=== PATIENT | male | born 1975 | race Caucasian/White ===

== ENCOUNTER 2019-11-21 09:54 | Inpatient (IN) | payer OTHER, SELFPAY ==
[2019-11-21] VITALS (23 sets, daily range): BP systolic 114–157; BP diastolic 71–91; PULSE 69–104; RESP 12–22; TEMP 36.6–38.7; O2SAT 91–99; BMI 22.6
--- NOTE | 2019-11-21 | PATH_ITS ---
[facility] Accession Number: [id number] . 01 Material submitted: . PART A: sigmoid colon - SIGMOID COLON PART B: rectum - RECTAL DONUTS . 01 Clinical history: . MULTIPLE PERFORATIONS IN COLON . 02 Diagnosis: A. Sigmoid Colon, Resection: Ruptured diverticulitis with pericolonic abscess and serositis. Negative for features of chronic or microscopic colitis. Negative for dysplasia and malignancy. . B. Rectum, Donuts: Portions of colon wall with focally denuded epithelium and serositis. Negative for features of chronic or microscopic colitis. Negative for dysplasia and malignancy. [facility] 11/23/2019 1328 Local . 02 Electronically signed: . Federica Worley MD, Pathologist NPI- [id number] . 01 Gross description: . (A) Received in formalin, labeled sigmoid colon, is an unoriented piece of colon (length-13.5 cm, opened resection margin diameter-2.7 cm, stapled resection margin diameter-2.8 cm) with attached adipose tissue (up to 3.8 cm in depth). The serosa is miller-pink, smooth and shiny. The adipose tissue partially covered in shipley-green, flaky, friable exudate. The mucosa is miller with normal folds. An apparent rupture site is identified 6.8 cm from the opened resection margin and 6.6 cm from the stapled resection margin. No nodules, masses or lesions are identified. The resection margins are inked blue. Section code: (A1) opened resection margin, agricultural sales representative longitudinal sections; (A2) stapled resection margin, agricultural sales representative longitudinal sections; (A3-A9) agricultural sales representative serial sections submitted from the opened resection margin to the stapled resection margin. (B) Received in formalin, labeled rectal donuts, are two unoriented segments of colon (segment 1: length-1.1 cm, diameter-1.6 cm; segment 2: length-0.7 cm, diameter-1.9 cm). The mucosa is miller, smooth and shiny. No nodules, masses or lesions are identified. The resection margins are inked blue. Each are bisected and entirely submitted in cassettes B1-B2 and B3-B4, respectively. ([id number]) /MRV 11/22/2019 1024 Local . 02 Pathologist provided ICD-10: K57.20 . 02 CPT . 849493, [id number] Performed at: 01 [facility] [address] [place] [address], [place], [place] [id number] MD Toni Johnson MD Phone: [phone] Performed at: 02 [facility] [address] [place], [place] [id number] MD Federica Worley MD Phone: [phone]
--- NOTE | 2019-11-21 10:18 | ED.GENADULT ---
HPI - General Adult General Chief complaint: Abdominal Pain Stated complaint: Multiple perforations in colon Time Seen by Provider: 11/21/19 10:00 Source: patient Mode of arrival: Ambulatory Limitations: no limitations History of Present Illness HPI narrative: 44-year-old male here to this emergency department after leaving against medical advice from another facility this morning. Patient states that on Wednesday he developed generalized abdominal pain. Went to the emergency department at this outside facility where he had a CT scan performed. He states that he was diagnosed with a perforated diverticulitis. He did report that there were no signs of abscesses. Was admitted to the hospital. Started on antibiotics. He also stated that his potassium was low so he was receiving potassium supplementation. Was in the hospital there until this morning. He states that yesterday his abdominal pain worsen. He stated that he had another CT scan performed when he was told that he now had ?multiple ?perforations in his colon. He is unsure whether not there were any associated abscesses however he does not remember them saying anything about this. The reason that he left against medical advice this morning was because he felt like he was ?not getting answers ?from the physician's at the other facility. He stated that he had to ask about his CT resolved. He stated that he had at ask for pain medication. He states that currently he is having generalized abdominal pain. He is having loose stools. No blood in the stools. A very small amount of nausea but no vomiting. He is also now having burning when he urinates. He states that since he was admitted to the hospital he has found out that he has a ?allergy? to opioid medications. He states that his reaction is itching. He states that he has been receiving Benadryl which improves the it but does not take it completely away. Related Data Home Medications Medication Instructions Recorded Confirmed IBUPROFEN (Motrin / Advil) 600 mg PO BID #0 05/01/06 Allergies Allergy/AdvReac Type Severity Reaction Status Date / Time hydromorphone [From Dilaudid] AdvReac Unknown ITCHING Verified 11/21/19 10:43 Review of Systems Constitutional Constitutional: Denies fever(s) and Denies headache(s) ENT Ears, Nose, Mouth, and Throat: Denies headache(s) Cardiovascular Cardiovascular: Denies chest pain and Denies dyspnea Respiratory Respiratory: Denies dyspnea Gastrointestinal Gastrointestinal: Reports abdominal pain, Reports change in stool character, Reports nausea and Denies vomiting Genitourinary Genitourinary: Reports dysuria Musculoskeletal Musculoskeletal: Denies myalgias and Denies arthralgias Integumentary/Breasts Skin/Breast: Denies lesions and Denies rash Neurologic Neurologic: Denies behavioral changes and Denies headache(s) Psychiatric Psychiatric: Denies behavioral changes Hematologic/Lymphatic Hematologic/Lymphatic: Denies easy bleeding and Denies easy bruising Allergic/Immunologic Allergic/Immunologic: Denies urticaria Patient History Medical History (Updated 11/21/19 @ 10:53 by Yasir Yang DO) Diverticulitis (Acute) Surgical History History of splenectomy (Acute) Social History Smoking Status: Current every day smoker Exam Initial Vital Signs Initial Vital Signs: Vital Signs Temperature 97.8 F 11/21/19 10:20 Pulse Rate 87 11/21/19 10:20 Respiratory Rate 13 11/21/19 10:20 Blood Pressure 131/78 11/21/19 10:20 Pulse Oximetry 98 11/21/19 10:20 Const General: cooperative and comfortable Limitations: mental status not altered HENMT Head: normal to inspection and normocephalic Resp Effort & Inspection: normal respiratory effort Auscultation: clear to auscultation bilaterally Cardio Rate: regular rate Rhythm: regular rhythm GI Inspection: non-distended Palpation: soft and tender (Diffuse tenderness) Skin Lesions: no lesions Rashes: no rashes Neuro General: alert and awake Cognition: normal cognition Speech: speech normal Extrem General: normal to inspection and capillary refill normal Psych Appearance: grossly normal and well kempt Scores GCS [place] coma scale eye opening: Spontaneous [place] coma scale verbal response: Orientated [place] coma scale motor response: Obey commands [place] coma scale total score: 15 Course Orders Ordered: ED Orders 11/21/19 10:25 Complete Blood Count AUTO DIFF Stat Comprehensive Metabolic Panel Stat Lactate (Lactic Acid) Stat Lipase Stat Procalcitonin Stat 11/21/19 10:52 Consult to General Surgery Stat Hydromorphone HCl (Dilaudid) 1 mg IV Q4HR PRN PRN Reason: Pain, Mild (1-3) Sodium Chloride (Normal Saline 0.9%) 1,000 mls @ 125 mls/hr IV CONT CALEB Last Admin: 11/21/19 10:48 Dose: 125 mls/hr Documented by: ABEL Piperacillin/Tazobactam/Dextrose (Zosyn) 3.375 gm in 50 mls @ 100 mls/hr IV NOW ONE Stop: 11/21/19 11:22 Metronidazole (Flagyl) 500 mg in 100 mls @ 100 mls/hr IV NOW ONE Stop: 11/21/19 11:51 Ondansetron HCl (Zofran) 4 mg IV Q4HR PRN PRN Reason: Nausea And Vomiting Discontinued Medications Diphenhydramine HCl (Benadryl) 25 mg IV NOW ONE Stop: 11/21/19 11:00 Hydromorphone HCl (Dilaudid) 1 mg IV NOW ONE Stop: 11/21/19 11:00 Vital Signs Vital signs: Vital Signs - 8 hr 11/21/19 10:20 Temperature 97.8 F Pulse Rate 87 Respiratory Rate 13 Blood Pressure 131/78 Pulse Oximetry 98 Medical Decision Making Medical Records Medical records reviewed: Yes I reviewed the patient's medical records. Lab Data Lab results reviewed: Yes I reviewed the patient's lab results. Result diagrams: 11/21/19 10:25 11/21/19 10:25 Labs: Lab Results 11/21/19 11/21/19 11/21/19 Range/Units 10:25 10:25 10:25 WBC 17.8 H (4.5-11.0) X10^3/uL RBC 4.51 (4.5-5.9) X10^6/uL Hgb 15.5 (13.5-17.5) g/dL Hct 44.5 (41-53) % MCV 98.6 (80-100) fL MCH 34.2 H (26-34) PG MCHC 34.7 (30-36) % RDW 12.9 (11.6-14.8) % Plt Count 244 (150-400) X10^3/uL Neut % (Auto) 90.8 H (50-75) % Lymph % (Auto) 2.1 L (25-40) % [place] % (Auto) 6.8 (3-14) % Eos % (Auto) 0.2 L (2-4) % Baso % (Auto) 0.1 (0-2) % Neut # (Auto) 79189 H (4169-2551) /uL Lymph # (Auto) 400 L (0043-9251) /uL [place] # (Auto) 1200 H (0-900) /uL Eos # (Auto) 0 (0-450) /uL Baso # (Auto) 0 (0-100) /uL Sodium 138 (137-145) mmol/L Potassium 3.7 (3.4-5.1) mmol/L Chloride 102 (98-107) mmol/L Carbon Dioxide 23 (22-32) mmol/L BUN 6 L (9-20) mg/dL Creatinine 0.70 (0.66-1.25) mg/dL Estimated GFR > 60.0 (>60) mL/min BUN/Creatinine Ratio 8.6 (6-22) Glucose 78 (70-100) mg/dL Lactate (0.7-2.1) mmol/L Calcium 9.2 (8.4-10.2) mg/dL Total Bilirubin 1.2 (0.2-1.3) mg/dL AST 32 (17-59) IU/L ALT 22 (<50) IU/L Alkaline Phosphatase 67 (38-126) U/L Total Protein 7.6 (6.3-8.2) g/dL Albumin 4.0 (3.5-5.0) g/dL Globulin 3.6 (1.7-4.1) g/dL Albumin/Globulin Ratio 1.1 (1.0-2.8) Lipase < 10 L (23-300) U/L Procalcitonin 0.26 (<0.5) ng/mL 11/21/19 Range/Units 10:25 WBC (4.5-11.0) X10^3/uL RBC (4.5-5.9) X10^6/uL Hgb (13.5-17.5) g/dL Hct (41-53) % MCV (80-100) fL MCH (26-34) PG MCHC (30-36) % RDW (11.6-14.8) % Plt Count (150-400) X10^3/uL Neut % (Auto) (50-75) % Lymph % (Auto) (25-40) % [place] % (Auto) (3-14) % Eos % (Auto) (2-4) % Baso % (Auto) (0-2) % Neut # (Auto) (6446-4674) /uL Lymph # (Auto) (3098-7684) /uL [place] # (Auto) (0-900) /uL Eos # (Auto) (0-450) /uL Baso # (Auto) (0-100) /uL Sodium (137-145) mmol/L Potassium (3.4-5.1) mmol/L Chloride (98-107) mmol/L Carbon Dioxide (22-32) mmol/L BUN (9-20) mg/dL Creatinine (0.66-1.25) mg/dL Estimated GFR (>60) mL/min BUN/Creatinine Ratio (6-22) Glucose (70-100) mg/dL Lactate 0.9 (0.7-2.1) mmol/L Calcium (8.4-10.2) mg/dL Total Bilirubin (0.2-1.3) mg/dL AST (17-59) IU/L ALT (<50) IU/L Alkaline Phosphatase (38-126) U/L Total Protein (6.3-8.2) g/dL Albumin (3.5-5.0) g/dL Globulin (1.7-4.1) g/dL Albumin/Globulin Ratio (1.0-2.8) Lipase (23-300) U/L Procalcitonin (<0.5) ng/mL MDM Narrative Medical decision making narrative: I was able to review patient's medical record from the outside facility. Initial CT scan done on 11/18/19 showed diverticulitis without signs of perforation. This was found on a report. The images were not available. Patient had a leukocytosis. Was admitted given Flagyl and Zosyn. Apparently symptoms worsened yesterday. Repeat CT scan yesterday now showed multiple perforated diverticuli with free air. Today patient has diffuse abdominal tenderness. He states he can take opioid medications with Benadryl. Has a leukocytosis. Is afebrile. We are attempting to obtain the CT images from the outside facility. I did discuss the case with Dr. Diego with General surgery who recommended starting the patient back on Zosyn and Flagyl. He did not think that we needed to repeat any imaging today. We will admit him for further evaluation and treatment. Discussed this with the patient. He expressed understanding and agreement. Discharge Plan Departure Patient Disposition: Admitted As Inpatient Clinical Impression: Diverticulitis of colon with perforation Qualifiers: Diverticulitis bleeding: unspecified bleeding status Qualified Code(s): K57.20 - Diverticulitis of large intestine with perforation and abscess without bleeding Admit Date/Time: 11/21/19 11:13
[2019-11-21 10:40] LABS: Add Manual Diff / Slide Review NO; Basophils Absolute Auto 0 /uL (0-100); Basophils Percent Auto 0.1 % (0-2); Eosinophils Absolute Auto 0 /uL (0-450); Eosinophils Percent Auto 0.2 % (2-4); Hematocrit 44.5 % (41-53); Hemoglobin 15.5 g/dL (13.5-17.5); Lymphocytes Absolute Auto 400 /uL (1100-4500); Lymphocytes Percent Auto 2.1 % (25-40); Mean Corpuscular HGB Conc 34.7 % (30-36); Mean Corpuscular Hemoglobin 34.2 PG (26-34); Mean Corpuscular Volume 98.6 fL (80-100); Monocytes Absolute Auto 1200 /uL (0-900); Monocytes Percent Auto 6.8 % (3-14); Neutrophils Absolute Auto 16200 /uL (1500-7000); Neutrophils Percent Auto 90.8 % (50-75); Platelet Count 244 X10^3/uL (150-400); Red Blood Cell Count 4.51 X10^6/uL (4.5-5.9); Red Cell Distribution Width 12.9 % (11.6-14.8); White Blood Cell Count 17.8 X10^3/uL (4.5-11.0)
[2019-11-21] MEDS: SODIUM CHLORIDE 0.9% 1,000 ML 125 ML IV (10:48)
[2019-11-21 10:54] LABS: Alanine Aminotransferase 22 IU/L (<50); Albumin Globulin Ratio 1.1 (1.0-2.8); Alkaline Phosphatase 67 U/L (38-126); Aspartate Aminotransferase 32 IU/L (17-59); BUN Creatinine Ratio 8.6 (6-22); Bilirubin Total 1.2 mg/dL (0.2-1.3); Blood Urea Nitrogen 6 mg/dL (9-20); Calcium 9.2 mg/dL (8.4-10.2); Carbon Dioxide 23 mmol/L (22-32); Chloride 102 mmol/L (98-107); Estimated Glomerular Filt Rate > 60.0 mL/min (>60); Globulin 3.6 g/dL (1.7-4.1); Glucose 78 mg/dL (70-100); HEMOLYSIS 31 (0-50); Potassium 3.7 mmol/L (3.4-5.1); Sodium 138 mmol/L (137-145); Total Protein 7.6 g/dL (6.3-8.2)
[2019-11-21 10:55] LABS: Lactate (Lactic Acid) 0.9 mmol/L (0.7-2.1)
[2019-11-21 10:57] LABS: Lipase < 10 U/L (23-300)
[2019-11-21 11:09] LABS: Procalcitonin 0.26 ng/mL (<0.5)
[2019-11-21] MEDS: ONDANSETRON 4 MG/2 ML INJ IV ×2 (11:14→19:07)
[2019-11-21] MEDS: HYDROMORPHONE 2 MG INJ 1 MG IV ×2 (11:14→23:55)
[2019-11-21] MEDS: diphenhydrAMINE 50 MG/ML VIAL 25 MG IV (11:40)
[2019-11-21] MEDS: PIPERACILLIN-TAZO 3.375 GM/50 ML FROZ.PIGGY IV (11:41)
[2019-11-21] MEDS: metroNIDAZOLE 500 MG/100 ML PIGGYBACK 100 MG IV (12:23)
--- NOTE | 2019-11-21 12:31 | DI.CT.S_ITS ---
PROCEDURE: CT ABDOMEN PELVIS W CON INDICATIONS: worsening diverticulitis TECHNIQUE: After the administration of intravenous contrast, 5 mm thick sections acquired from the diaphragm to the symphysis. 5 mm coronal and sagittal reformats were acquired. For radiation dose reduction, the following was used: automated exposure control, adjustment of mA and/or kV according to patient size. COMPARISON: [facility], RG, CT ABDOMEN/PELVIS WITH CONTRAST, 11/20/2019, 15:57. FINDINGS: Image quality: Excellent. ABDOMEN: Lung bases: Lung bases are clear. Heart size is normal. Solid organs: Liver is normal in size and enhancement. Gallbladder negative. Biliary system is non dilated. Pancreas enhances normally. Spleen is absent. Possible splenule seen in addition to the posterior segment of the liver, although technically nonspecific in the absence of remote prior studies. No adrenal nodules. Kidneys demonstrate normal size and enhancement, without hydronephrosis. Peritoneum and bowel: There is numerous colonic diverticula and acute diverticulitis involving sigmoid colon with mural thickening, adjacent bubbles of free air seen on image 66/2. There is also a large collection of intraperitoneal free air adjacent to the liver, and scattered throughout the left and right upper quadrants. No free fluid or air. Fluid-filled right-sided colon. The appendix is within normal limits Nodes and vessels: No retroperitoneal or mesenteric adenopathy by size criteria. Aorta and inferior vena cava are normal in size. Miscellaneous: No ventral hernias. PELVIS: Genitourinary: Partially collapsed bladder is grossly unremarkable. Miscellaneous: No inguinal hernias or adenopathy. Bones: No suspicious bony lesions. L1 compression fracture and scattered Schmorl's nodes. Diffuse spondylosis. IMPRESSION: Acute, perforated sigmoid diverticulitis with associated large amount of intraperitoneal free air, increased since the prior study dated 11/20/19. Critical findings were personally discussed with Dr. Diego at 1315 hours 11/21/19. Dictated by: Jonathan Rahman M.D. on 11/21/2019 at 13:08 Approved by: Jonathan Rahman M.D. on 11/21/2019 at 13:20
[2019-11-21 12:32] LABS: WBC Urine None Seen (0-5/HPF)
[2019-11-21 12:33] LABS: Appearance Urine UA CLEAR; Bilirubin Urine UA NEGATIVE (NEGATIVE); Color Urine UA YELLOW; Glucose Urine UA NEGATIVE (Negative); Ketones Urine UA 3+ (NEGATIVE); Leukocyte Esterase Urine UA NEGATIVE (NEGATIVE); Nitrite Urine UA NEGATIVE (Negative); Occult Blood Urine UA 3+ (Negative); Protein Urine UA NEGATIVE (Negative); Urobilinogen Urine UA 0.2 E.U./dL (0.2)
--- NOTE | 2019-11-21 12:34 | PM.HP.1 ---
History of Present Illness History of Present Illness Date Patient Seen: 11/21/19 Time Patient Seen: 12:35 Chief complaint: Multiple perforations in colon Narrative: Sebas is a 44-year-old man who is admitted with acute diverticulitis. He was admitted to [facility] 3 days ago with diverticulitis with microperforation. Yesterday he had worsening of his abdominal pain had a repeat CT scan at the OSH that demonstrated multiple microperforations and continued treatment with Zosyn. Today he left AMA and presents to our ER with worsening abdominal pain. No nausea vomiting or diarrhea. Today WBC on admission 18, 91% neutrophils. Past surgical history of splenectomy for trauma. He is a current daily smoker and not on anticoagulation. No prior colonoscopy or family history of intestinal malignancy. Patient History Medical History (Updated 11/21/19 @ 10:53 by Yasir Yang DO) Diverticulitis (Acute) Surgical History History of splenectomy (Acute) Family & Social History Safety & Behavioral: Feels Safe in Current Yes Environment Tobacco & Substance use: Smoking Status Current every day smoker alcohol intake frequency 0-2 drinks per day Substance Use Type does not use Meds Home Medications and Allergies Home Medications Medication Instructions Recorded Confirmed Type ibuprofen 600 mg PO BID #0 05/01/06 11/21/19 History Allergies Allergy/AdvReac Type Severity Reaction Status Date / Time hydromorphone [From Dilaudid] AdvReac Unknown ITCHING Verified 11/21/19 10:43 Review of Systems Review of Systems Narrative: A 10 point review of systems is negative except as noted in the HPI Exam Vital Signs (past 8 hours): - 11/21/19 10:20 11/21/19 11:15 11/21/19 12:14 Temperature 97.8 F 100.7 F H Pulse Rate 87 77 80 Respiratory Rate 13 17 20 Blood Pressure 131/78 157/87 H Blood Pressure [Right Arm] 129/91 H Pulse Oximetry 98 96 98 Oxygen Delivery Method Room Air Oxygen Flow Rate 0 Narrative Exam Narrative: General-adult male who appears uncomfortable, well nourished HEENT-moist mucous membranes, no scleral icterus Neck-supple, no lymphadenopathy Chest- non labored respirations, clear to auscultation bilaterally Cardiac-regular rate no peripheral edema Abdomen-focal peritonitis left lower quadrant Extremities-warm, well perfused Neurological-alert and oriented, no focal deficits Objective Labs Result Diagrams: 11/21/19 10:25 11/21/19 10:25 Labs: Laboratory Results - last 24 hr 11/21/19 11/21/19 11/21/19 10:25 10:25 10:25 WBC 17.8 H RBC 4.51 Hgb 15.5 Hct 44.5 MCV 98.6 MCH 34.2 H MCHC 34.7 RDW 12.9 Plt Count 244 Neut % (Auto) 90.8 H Lymph % (Auto) 2.1 L [place] % (Auto) 6.8 Eos % (Auto) 0.2 L Baso % (Auto) 0.1 Neut # (Auto) 58013 H Lymph # (Auto) 400 L [place] # (Auto) 1200 H Eos # (Auto) 0 Baso # (Auto) 0 Sodium 138 Potassium 3.7 Chloride 102 Carbon Dioxide 23 BUN 6 L Creatinine 0.70 Estimated GFR > 60.0 BUN/Creatinine Ratio 8.6 Glucose 78 Lactate Calcium 9.2 Total Bilirubin 1.2 AST 32 ALT 22 Alkaline Phosphatase 67 Total Protein 7.6 Albumin 4.0 Globulin 3.6 Albumin/Globulin Ratio 1.1 Lipase < 10 L Procalcitonin 0.26 Urine Color Urine Appearance Urine pH Ur Specific [place] Urine Protein Urine Glucose (UA) Urine Ketones Urine Occult Blood Urine Nitrate Urine Bilirubin Urine Urobilinogen Ur Leukocyte Esterase 11/21/19 11/21/19 10:25 12:15 WBC RBC Hgb Hct MCV MCH MCHC RDW Plt Count Neut % (Auto) Lymph % (Auto) [place] % (Auto) Eos % (Auto) Baso % (Auto) Neut # (Auto) Lymph # (Auto) [place] # (Auto) Eos # (Auto) Baso # (Auto) Sodium Potassium Chloride Carbon Dioxide BUN Creatinine Estimated GFR BUN/Creatinine Ratio Glucose Lactate 0.9 Calcium Total Bilirubin AST ALT Alkaline Phosphatase Total Protein Albumin Globulin Albumin/Globulin Ratio Lipase Procalcitonin Urine Color Yellow Urine Appearance Clear Urine pH 5.0 Ur Specific [place] 1.020 Urine Protein Negative Urine Glucose (UA) Negative Urine Ketones 3+ H Urine Occult Blood 3+ H Urine Nitrate Negative Urine Bilirubin Negative Urine Urobilinogen 0.2 Ur Leukocyte Esterase Negative Assessment & Plan Assessment and plan (1) Diverticulitis of colon with perforation: Qualifiers: Diverticulitis bleeding: unspecified bleeding status Qualified Code(s): K57.20 - Diverticulitis of large intestine with perforation and abscess without bleeding Current visit: Yes Status: Acute Assessment & Plan narrative: 44-year-old man with acute diverticulitis hemodynamically stable. CT abdomen pelvis is pending however I am concerned by his WBC 18 with left shift and focal peritonitis. I discussed with him that if his disease is limited to microperforation we may be able to manage his conservatively with antibiotics therapy. However if he has abundio perforation then he will require urgent sigmoid colectomy with possible colostomy. -CT A/P now -NPO/IVF -Zosyn/Flagyl -Stat COVID 19 test -SCDs -Pain control
[2019-11-21 13:02] LABS: Bacteria Urine Occasional (0-1); Culture Indicated Urine Cult Not Indicated; RBC Urine 1-5/HPF (0-5/HPF)
--- NOTE | 2019-11-21 13:55 | PC.NURSE ---
PT ADMITTED FROM ED WITH SIGNIFICANT ABD PAIN AND ELEVATED WBC - HE ARRIVED FROM [facility] WHERE HE LEFT AMA FOR SAME REASON- CT SCAN COMPLETED WITH EVIDENCE OF PERFORATION- HE WAS MAINTAINED WITH NPO STATUS AND CONSENTED TO SURGERY- LEFT TO OR AT 1350. PRIOR TO OR HE HAD NS AT 125CC/H RECEIVED FLAGYL IV HERE IN ICU AND ZOSYN IN ED- TEARFUL AND ANXIOUS UPON LEAVING UNIT- ATTEMPTED TO CALM VERBALLY
[2019-11-21] MEDS: fentaNYL 100 MCG/2 ML INJ 50 MCG IV ×2 (14:06→18:05)
[2019-11-21 14:18] LABS: COVID19 -Nasal RAPID Negative (Negative)
[2019-11-21] MEDS: ACETAMINOPHEN IV 1,000 MG/100 ML VIAL 400 MG IV (14:19)
[2019-11-21] MEDS: LACTATED RINGERS 1,000 ML 42 ML IV ×2 (14:20→15:24)
--- NOTE | 2019-11-21 15:01 | SUR.OPER ---
Lithotomy on padded OR bed, head on pillow, arms secured on padded arm boards at <90 degrees abduction. Legs secured in padded yellow fins stirrups.
--- NOTE | 2019-11-21 15:55 | SUR.OPER ---
PATIENT'S GLASSES SENT TO PACU WITH PATIENT
[2019-11-21] MEDS: MORPHINE 10 MG/ML INJ IV ×4 (17:35→18:17)
--- NOTE | 2019-11-21 17:40 | P.OP_ITS ---
Operative Date/Time/Diagnoses Date of procedure: 11/21/19 Time of procedure: 17:40 Pre-op diagnosis: perforated diverticulitis Post-op diagnosis: same Procedure & Clinicians Procedure: Exploratory laparotomy, sigmoid colectomy, loop ileostomy Same procedure as scheduled: Yes Indications: This is a 44-year-old man who was treated for acute diverticulitis conservatively for 3 days and developed worsening abdominal pain repeat CT demonstrates abundio perforation large amount of free air associated with the worsening leukocytosis and fever. Surgeon: Avi Diego Drilling Field Specialist: Elvira Meyers Anesthesia Type: General Operative Notes Findings: Purulent peritonitis Specimen(s): other (Sigmoid colon) Estimated Blood Loss (mL): 50 Procedure in detail: The patient was brought to the operating room and placed supine on the table. Bilateral lower extremity compression devices were applied. General anesthesia was induced and they were intubated with an endotracheal tube. They were placed in the lithotomy position and prepped and draped in sterile fashion. A quiroz catheter was placed under sterile condition. They received 3.375 g of Zosyn prior to skin incision. Time-out was performed to ensure the correct patient procedure necessary equipment within the operating room. Midline laparotomy was performed through his previous surgical scar. The fascia was elevated sharply incised and the abdomen was entered atraumatically. There was no evidence of injury upon entry. Examination of the abdomen demonstrated purulent peritonitis within the pelvis. The Bookwalter was placed small bowel was swept out of the way and protected and inspection of the sigmoid colon demonstrated a 1 cm perforation on the mesenteric side of the mid sigmoid colon. The colon on either side of the perforation was extremely firm and involved the entirety of the sigmoid colon. At the sigmoid rectal junction the colon was fairly soft and pliable as well as above the level of the sigmoid colon. There was no gross feculent contamination. The sigmoid colon was mobilized off the lateral attachments along the white line of Toldt towards the splenic flexure. Of note he had a previous splenectomy in the area near the splenic flexure was fairly well adhesed. I selected a point at the proximal sigmoid colon for resection. Window within the mesentery was made close to the bowel wall and then the bowel was divided using the Endo-CHERYL stapler blue load. The mesentery to the sigmoid colon was then taken with the LigaSure close to the wall of the bowel to avoid injury to the surrounding structures. The mesentery was taken down to the point of the rectosigmoid junction where the bowel wall was soft and pliable. Again a window within the mesentery was made and the bowel was then transected using the TA stapler. The specimen was passed off the field labeled as sigmoid colon. There was adequate laxity in the left colon to fashion an end to end anastomosis via a TA stapler without tension. The staple line from the proximal bowel was resected and then using 3 0 PDS suture pursestring was formed around the anvil. A 29 EEA stapler was selected. The stapler was then advanced into the rectum and the spike deployed and then the anvil and spike were mated and direct visualization after ensuring that the left colon was in appropriate alignment and not twisted. The stapler was fired withdrawn and inspection demonstrated 2 anastomotic donuts. Then air was insufflated through the rectum well submerging the anastomosis and there was no evidence of leak. Next a site on the right abdominal wall was chosen for the loop ileostomy. A circumferential incision within the skin was made the subcutaneous tissues were excised. The anterior fascia was divided in cruciate fashion the the rectus muscles spread and then the posterior fascia was incised in a vertical fashion. A small window within the mesentery of the terminal ileum approximately 20 cm from the ileocecal valve was made. Red rubber catheter was then passed through the hole in the with mesentery and used to bring the ileum up to the abdominal wall in a loop form. A horizontal incision was made in the loop and a brooked ileostomy was formed using Vicryl suture. The abdomen was then irrigated with 2 L of sterile saline and the lavage was clear. Fascia was then closed from above and below using 1. PDS suture. The skin was then irrigated and then closed with wilberto. Patient tolerated the procedure well he was extubated and transferred to the recovery room in stable condition. Complications: none Post-operative Condition: stable Disposition: Acute Care
[2019-11-21] MEDS: LORazepam 2 MG/ML INJ 0.25 MG IV ×2 (17:41→17:58)
[2019-11-21] MEDS: KETOROLAC 30 MG/ML VIAL IV ×2 (18:01→23:29)
[2019-11-21] MEDS: hydrOXYzine 50 MG/ML INJ 25 MG IM (18:39)
[2019-11-21] MEDS: NICOTINE 7 MG PATCH TOP (20:59)
[2019-11-22] VITALS (13 sets, daily range): BP systolic 120–137; BP diastolic 82–85; PULSE 67–92; RESP 16–20; TEMP 35.9–37.1; O2SAT 94–98
[2019-11-22] MEDS: MORPHINE 4 MG/ML INJ IV ×7 (03:00→22:30)
[2019-11-22 05:08] LABS: Add Manual Diff / Slide Review NO; Basophils Absolute Auto 100 /uL (0-100); Basophils Percent Auto 0.4 % (0-2); Eosinophils Absolute Auto 100 /uL (0-450); Eosinophils Percent Auto 0.4 % (2-4); Hematocrit 42.3 % (41-53); Hemoglobin 14.9 g/dL (13.5-17.5); Lymphocytes Absolute Auto 600 /uL (1100-4500); Lymphocytes Percent Auto 3.6 % (25-40); Mean Corpuscular HGB Conc 35.3 % (30-36); Mean Corpuscular Hemoglobin 34.8 PG (26-34); Mean Corpuscular Volume 98.8 fL (80-100); Monocytes Absolute Auto 900 /uL (0-900); Monocytes Percent Auto 5.1 % (3-14); Neutrophils Absolute Auto 15800 /uL (1500-7000); Neutrophils Percent Auto 90.5 % (50-75); Platelet Count 254 X10^3/uL (150-400); Red Blood Cell Count 4.28 X10^6/uL (4.5-5.9); Red Cell Distribution Width 12.7 % (11.6-14.8); White Blood Cell Count 17.5 X10^3/uL (4.5-11.0)
[2019-11-22 05:19] LABS: BUN Creatinine Ratio 10.3 (6-22); Blood Urea Nitrogen 7 mg/dL (9-20); Carbon Dioxide 19 mmol/L (22-32); Chloride 109 mmol/L (98-107); Estimated Glomerular Filt Rate > 60.0 mL/min (>60); Glucose 146 mg/dL (70-100); HEMOLYSIS < 15 (0-50); Magnesium 2.1 mg/dL (1.6-2.3); Phosphorous 4.1 mg/dL (2.5-4.5); Potassium 4.1 mmol/L (3.4-5.1); Sodium 139 mmol/L (137-145)
[2019-11-22] MEDS: KETOROLAC 30 MG/ML VIAL IV ×3 (05:52→18:05)
[2019-11-22] MEDS: NICOTINE 7 MG PATCH TOP (08:25)
--- NOTE | 2019-11-22 10:30 | PM.PNPO.1 ---
Subjective Subjective Date Patient Seen: 11/22/19 Time Patient Seen: 10:30 Interval history: No acute overnight events. Of Tony catheter was causing discomfort urine output was excellent Tony was removed overnight. Tolerating clear liquid diet there is ileostomy output in addition to air within the bag. No nausea vomiting. Has been out of bed and ambulating in the hallway. Exam Vital Signs (past 8 hours): - 11/22/19 04:52 11/22/19 05:00 11/22/19 07:43 Temperature 96.7 F L 98.4 F Pulse Rate 67 76 Respiratory Rate 16 18 Blood Pressure 137/85 124/85 Pulse Oximetry 96 96 97 Oxygen Delivery Method Room Air Oxygen Flow Rate 0 Narrative Exam Narrative: General adult male alert oriented no acute distress Abdomen soft appropriately tender to palpation the ileostomy is viable and productive. Dressing was reinforced overnight but clean currently. Objective Labs Result Diagrams: 11/22/19 04:49 11/22/19 04:49 Labs: Laboratory Results - last 24 hr 11/21/19 11/21/19 11/21/19 10:25 10:25 10:25 WBC 17.8 H RBC 4.51 Hgb 15.5 Hct 44.5 MCV 98.6 MCH 34.2 H MCHC 34.7 RDW 12.9 Plt Count 244 Neut % (Auto) 90.8 H Lymph % (Auto) 2.1 L [place] % (Auto) 6.8 Eos % (Auto) 0.2 L Baso % (Auto) 0.1 Neut # (Auto) 80151 H Lymph # (Auto) 400 L [place] # (Auto) 1200 H Eos # (Auto) 0 Baso # (Auto) 0 Sodium 138 Potassium 3.7 Chloride 102 Carbon Dioxide 23 BUN 6 L Creatinine 0.70 Estimated GFR > 60.0 BUN/Creatinine Ratio 8.6 Glucose 78 Lactate Calcium 9.2 Phosphorus Magnesium Total Bilirubin 1.2 AST 32 ALT 22 Alkaline Phosphatase 67 Total Protein 7.6 Albumin 4.0 Globulin 3.6 Albumin/Globulin Ratio 1.1 Lipase < 10 L Procalcitonin 0.26 Urine Color Urine Appearance Urine pH Ur Specific [place] Urine Protein Urine Glucose (UA) Urine Ketones Urine Occult Blood Urine Nitrate Urine Bilirubin Urine Urobilinogen Ur Leukocyte Esterase Urine RBC Urine WBC Urine Bacteria Ur Culture Indicated? Nasal Screen MRSA (PCR) COVID-19 PCR 11/21/19 11/21/1911/20/20 10:25 12:15 12:15 WBC RBC Hgb Hct MCV MCH MCHC RDW Plt Count Neut % (Auto) Lymph % (Auto) [place] % (Auto) Eos % (Auto) Baso % (Auto) Neut # (Auto) Lymph # (Auto) [place] # (Auto) Eos # (Auto) Baso # (Auto) Sodium Potassium Chloride Carbon Dioxide BUN Creatinine Estimated GFR BUN/Creatinine Ratio Glucose Lactate 0.9 Calcium Phosphorus Magnesium Total Bilirubin AST ALT Alkaline Phosphatase Total Protein Albumin Globulin Albumin/Globulin Ratio Lipase Procalcitonin Urine Color Yellow Urine Appearance Clear Urine pH 5.0 Ur Specific [place] 1.020 Urine Protein Negative Urine Glucose (UA) Negative Urine Ketones 3+ H Urine Occult Blood 3+ H Urine Nitrate Negative Urine Bilirubin Negative Urine Urobilinogen 0.2 Ur Leukocyte Esterase Negative Urine RBC 1-5/hpf Urine WBC None seen Urine Bacteria Occasional (0-1) Ur Culture Indicated? Cult not indicated Nasal Screen MRSA (PCR) Negative for mrsa COVID-19 PCR 11/21/19 11/22/19 11/22/19 12:45 04:49 04:49 WBC 17.5 H RBC 4.28 L Hgb 14.9 Hct 42.3 MCV 98.8 MCH 34.8 H MCHC 35.3 RDW 12.7 Plt Count 254 Neut % (Auto) 90.5 H Lymph % (Auto) 3.6 L [place] % (Auto) 5.1 Eos % (Auto) 0.4 L Baso % (Auto) 0.4 Neut # (Auto) 92875 H Lymph # (Auto) 600 L [place] # (Auto) 900 Eos # (Auto) 100 Baso # (Auto) 100 Sodium 139 Potassium 4.1 Chloride 109 H Carbon Dioxide 19 L BUN 7 L Creatinine 0.68 Estimated GFR > 60.0 BUN/Creatinine Ratio 10.3 Glucose 146 H Lactate Calcium 9.0 Phosphorus 4.1 Magnesium 2.1 Total Bilirubin AST ALT Alkaline Phosphatase Total Protein Albumin Globulin Albumin/Globulin Ratio Lipase Procalcitonin Urine Color Urine Appearance Urine pH Ur Specific [place] Urine Protein Urine Glucose (UA) Urine Ketones Urine Occult Blood Urine Nitrate Urine Bilirubin Urine Urobilinogen Ur Leukocyte Esterase Urine RBC Urine WBC Urine Bacteria Ur Culture Indicated? Nasal Screen MRSA (PCR) COVID-19 PCR Negative Assessment & Plan Post-op Postoperative Procedures: Procedures Operation Date: 11/21/19 13:30 Actual Procedures Side Surgeon p Exploratory Laparotomy, sigmoid colectomy & colostomy Avi Diego MD Postoperative status narrative: 44-year-old male postoperative day 1 status post sigmoid colectomy and diverting ileostomy for perforated diverticulitis with purulent peritonitis doing well. # sepsis resolving-continue Zosyn for a total of 5 days for intra-abdominal contamination. -advanced diet to regular -DC IV fluids -ostomy teaching -start Lovenox and SCDs for VT prophylaxis -out of bed ambulate -p.o. pain meds Quality VTE Deep Vein Thrombosis/Pulmonary Embolism Present on Admission: No
[2019-11-22] MEDS: PIPERACILLIN-TAZO 3.375 GM/50 ML FROZ.PIGGY IV ×2 (12:15→20:14)
[2019-11-22] MEDS: OXYCODONE IR 5 MG TABLET PO (12:18)
--- NOTE | 2019-11-22 15:31 | PC.NURSE ---
Ostomy Nurse Consult Note Sebas sleeping yet arousable. He states he hasn't had much sleep today. I assessed his stoma with his appliance on. I did not change his appliance today but will change it tomorrow. His stoma is beefy red, moist and the bridge is in place. There is green/brown liquid effluent in his pouch. His mid-line dressing is intact. Sebas verbalized understanding of 's explanation of a loop ileostomy very well. I gave him the [employer] New Patient Guide, The crusting technique, Food Guide, What to do for a food blockage written materials. He will review these tonight and tomorrow. I will be here tomorrow evening around 5:30 to change his appliance and have him practice with the pouching systems. I did show him pouching systems and we will continue with this teaching tomorrow. Sebas is retired from work due to physical limitations, he states he broke his back and is unable to continue with his work. He lives with his and children and has a 3 year old son. I did speak to GENOVEVA Malin regarding discharge planning and I also feel as Dea does that Sebas will be able to manage his own ostomy needs without needing skilled RN home health.
--- NOTE | 2019-11-22 16:26 | CM.IDA ---
Initial DCP Assessment Note: Pt is a 44 yo male, resident of [facility]. Patient admitted inpatient, s/p exploratory lap, sigmoid colectomy and colostomy. PCP: Payer: [place] Reviewed chart, spoke w/ RN Dasha who explained patient has been recovering very well POD#1 and he is eager to return home when medically cleared. Met w/patient, explained SW role. Patient has two teenagers and a 3 yo, spouse Aryan works multimedia services manager but spends 2-3 days working from home d/t COVID-19 pandemic. Patient explains w/help from his teenagers, who are at home doing online school work, he is not solely responsible for his 3 yo and is not concerned about returning home to heal. Patient is confident that he will have enough support and assist from his immediate family and his mom and mother in law. No SW needs identified at this time. Patient very appreciative of the visit. Spoke w/Ostomy/wound care nurse, Marie Williamson, who was preparing to visit w/patient and conduct training. She is hopeful pt's can visit at the hospital before DC to participate in teaching about patient's new colostomy. Reviewed summary of above, patient expects to return home w/supportive family to assist upon DC. Following closely in case any DC needs or concerns arise. GENOVEVA Donald Discharge Planning/Care Management CM Discharge Assessment Start: 11/22/19 15:55 Freq: Status: Active Protocol: Document 11/22/19 15:56 ZEINAB (Rec: 11/22/19 16:26 ZEINAB [id number]) Discharge Planning Assessment Assigned Government Auditor GENOVEVA Ag DPOA/Assigned Designee Name Aryan Gorman, rogelio Contact Information [phone] Advance Directives? No Advance Directives on File No History Provided By Patient Prior Living Arrangements House Household Members spouse Type of transportation used prior to Drives own vehicle admit Independent with ADL's Yes Is patient alert and oriented? Yes Barriers to Discharge No Discharge Plan Home Transportation Arrangement Family Referrals Initiated None needed Whiteboard Updated in Patient Room with Yes name and ext. # of Government Auditor
[2019-11-22] MEDS: SODIUM CHLORIDE 0.9% 250 ML 21 ML IV (20:15)
[2019-11-23] VITALS (11 sets, daily range): BP systolic 97–153; BP diastolic 70–85; PULSE 50–74; RESP 16–20; TEMP 36.5–37.2; O2SAT 96–100
[2019-11-23] MEDS: KETOROLAC 30 MG/ML VIAL IV ×4 (00:06→17:54)
[2019-11-23] MEDS: SODIUM CHLORIDE 0.9% FLUSH 10 ML IV ×2 (00:06→10:05)
[2019-11-23] MEDS: PIPERACILLIN-TAZO 3.375 GM/50 ML FROZ.PIGGY IV ×3 (02:37→18:46)
[2019-11-23] MEDS: MORPHINE 4 MG/ML INJ IV ×5 (02:37→17:52)
[2019-11-23 05:34] LABS: Add Manual Diff / Slide Review NO; Basophils Absolute Auto 100 /uL (0-100); Basophils Percent Auto 0.6 % (0-2); Eosinophils Absolute Auto 200 /uL (0-450); Eosinophils Percent Auto 1.5 % (2-4); Hematocrit 39.3 % (41-53); Hemoglobin 13.6 g/dL (13.5-17.5); Lymphocytes Absolute Auto 2000 /uL (1100-4500); Lymphocytes Percent Auto 11.8 % (25-40); Mean Corpuscular HGB Conc 34.6 % (30-36); Mean Corpuscular Hemoglobin 34.3 PG (26-34); Mean Corpuscular Volume 99.1 fL (80-100); Monocytes Absolute Auto 1900 /uL (0-900); Monocytes Percent Auto 11.5 % (3-14); Neutrophils Absolute Auto 12500 /uL (1500-7000); Neutrophils Percent Auto 74.6 % (50-75); Platelet Count 285 X10^3/uL (150-400); Red Blood Cell Count 3.96 X10^6/uL (4.5-5.9); Red Cell Distribution Width 13.2 % (11.6-14.8); White Blood Cell Count 16.8 X10^3/uL (4.5-11.0)
[2019-11-23 05:43] LABS: BUN Creatinine Ratio 18.9 (6-22); Blood Urea Nitrogen 14 mg/dL (9-20); Calcium 8.4 mg/dL (8.4-10.2); Carbon Dioxide 27 mmol/L (22-32); Chloride 110 mmol/L (98-107); Estimated Glomerular Filt Rate > 60.0 mL/min (>60); Glucose 153 mg/dL (70-100); HEMOLYSIS < 15 (0-50); Magnesium 2.2 mg/dL (1.6-2.3); Phosphorous 2.7 mg/dL (2.5-4.5); Potassium 3.3 mmol/L (3.4-5.1); Sodium 141 mmol/L (137-145)
[2019-11-23] MEDS: OXYCODONE IR 5 MG TABLET PO (06:35)
[2019-11-23] MEDS: NICOTINE 7 MG PATCH TOP (08:57)
[2019-11-23] MEDS: ENOXAPARIN 30 MG/0.3 ML SYRINGE SUBCUT (09:05)
[2019-11-23] MEDS: PSYLLIUM HUSK 1 PACKET PO (09:08)
--- NOTE | 2019-11-23 09:10 | P.PN_ITS ---
Subjective Subjective Date Patient Seen: 11/23/19 Time Patient Seen: 09:10 Interval history: Pt feeling well. Has some abdominal pain. Ostomy functioning Exam Vital Signs (past 8 hours): - 11/23/19 04:00 11/23/19 04:23 11/23/19 08:00 Temperature 98.4 F 99.0 F Pulse Rate 74 50 L Respiratory Rate 16 18 Blood Pressure 104/70 153/85 H Pulse Oximetry 96 96 97 Oxygen Delivery Method Room Air Oxygen Flow Rate 0 Narrative Exam Narrative: excellent effort. Lings clear throughout. Heart RRR without m or g. Incision intact. Mild bruising. No cellulitis. Ostomy healthy. Objective Labs Result Diagrams: 11/23/19 05:08 11/23/19 05:08 Labs: Laboratory Results - last 24 hr 11/23/19 11/23/19 05:08 05:08 WBC 16.8 H RBC 3.96 L Hgb 13.6 Hct 39.3 L MCV 99.1 MCH 34.3 H MCHC 34.6 RDW 13.2 Plt Count 285 Neut % (Auto) 74.6 Lymph % (Auto) 11.8 L [place] % (Auto) 11.5 Eos % (Auto) 1.5 L Baso % (Auto) 0.6 Neut # (Auto) 12291 H Lymph # (Auto) 2000 [place] # (Auto) 1900 H Eos # (Auto) 200 Baso # (Auto) 100 Sodium 141 Potassium 3.3 L Chloride 110 H Carbon Dioxide 27 BUN 14 Creatinine 0.74 Estimated GFR > 60.0 BUN/Creatinine Ratio 18.9 Glucose 153 H Calcium 8.4 Phosphorus 2.7 D Magnesium 2.2 Assessment & Plan Post-op Postoperative Procedures: Procedures Operation Date: 11/21/19 13:30 Actual Procedures Side Surgeon p Exploratory Laparotomy, sigmoid colectomy & colostomy Avi Diego MD Postoperative status: doing well Postoperative plan narrative: I am a little concerned about persistent WBC elevation. Will add flagyl to meds. Ostomy care and teaching to continue. Potassium is low. Will replace. Glucose is up. Will follow. suspect this is just stress related elevation. Pain meds will be adjusted at patient request. Quality VTE Deep Vein Thrombosis/Pulmonary Embolism Present on Admission: No
[2019-11-23] MEDS: INFLUENZA VACCINE 0.5 ML SYRINGE IM (10:03)
[2019-11-23] MEDS: metroNIDAZOLE 500 MG/100 ML PIGGYBACK 100 MG IV ×3 (10:05→21:16)
[2019-11-23] MEDS: POTASSIUM CHLORIDE 40 MEQ in SODIUM CHLORIDE 0.9% 500 ML 130 ML IV (10:06)
[2019-11-23] MEDS: OXYCODONE IR 5 MG TABLET 10 MG PO ×2 (10:29→20:50)
--- NOTE | 2019-11-23 17:28 | DIET.PN ---
Addendum entered by Lea Ballard 11/24/19 11:39: Alerted by Claims Correspondence Clerk that pt declines lunch. Spoke c pt who was having cantaloupe and cranberry juice left over from breakfast. Pt reports abd distension reducing appetite. Feel like he over did it yesterday so wants to slow down until stomach feels better. Discussed c pt importance of PRO intake to support abd healing, though agreed that taking it slow was good idea. Pt willing to drink 2 ONS Ensure Surgery today to support nutrition status which provides 40% PRO needs. Pt doesn't love the ONS but willing to sip it throughout morning. Original Note: Dietary Progress Note Assessment: 44y M admitted for multiple perforations in colon requiring exploratory laparotomy, sigmoid colectomy & colostomy referred to nutrition for assistance with food selection. Pt experiencing some bloating after breakfast meal which included watermelon and strawberries with chicken soup. Ostomy nurse and I worked together to provide education on nutrition reccs for ostomy fxn and healing and provided pt booklet and handouts to support teaching. Pt requests half portions at all meals as his natural tendency is to clean his plate which may increase GI sx during acute healing. HT: 182.2cm WT: 75.3kg BMI: 22.7 Labs: K+ 3.3 L MNA: 12 normal nutrition Main: 21 Diet Order: Low Residue to maintain ostomy function EER: 2250kcal (30kcal/kg), 90g PRO (1.2g/kg wound healing) Monitoring/Evaluations: monitor POs, consider ONS to support protein needs if POs remain low.
--- NOTE | 2019-11-23 17:35 | PC.NURSE ---
Ostomy Nurse Consult Note Sebas awake and ready for teaching. He is having pain stating that it feels like his muscles are pulling apart. Kayli his nurse was notified and he has pain medication if he needs it. He has decided to wait awhile. I removed his appliance. His stoma is beefy red, moist, oval. The loop ileostomy bar is in place. He sutures around the stoma are attached. His stoma measures 29mm and is slightly swollen. He is producing brown liquid stool. I removed his midline dressing because I needed to apply the new ostomy appliance. Kayli came in to see the incision line and the old dressing. The wilberto are intact and there is some bruising at the distal end of the staple line. There is no active drainage. The dressing had a small amount of serosanguaneous drainage. I replaced the dressing with two 4x4 folded in half and covered with an opsite. I placed him in a Convatec moldable 45mm flat wafer with a clear non filter pouch. I had Sebas apply an appliance to the stoma model. We reviewed the Crusting Technique and reviewed stoma paste, strip paste and powder. Lea the discovery guide came in and review an ileostomy diet with Sebas and myself. I would like to see about having Sebas's come in on Wednesday for some ostomy training and will contact Care Management tomorrow about this, Dea and I did discuss this yesterday. Sebas would also like to have his come in and learn about the ostomy as well. I will return on Wednesday pre-discharge.
[2019-11-24] VITALS (9 sets, daily range): BP systolic 104–129; BP diastolic 66–82; PULSE 48–65; RESP 16–18; TEMP 36.3–36.7; O2SAT 96–99
[2019-11-24] MEDS: KETOROLAC 30 MG/ML VIAL IV ×4 (00:12→17:19)
[2019-11-24] MEDS: MORPHINE 4 MG/ML INJ IV ×3 (00:12→10:22)
[2019-11-24] MEDS: OXYCODONE IR 5 MG TABLET 10 MG PO ×5 (01:00→21:31)
[2019-11-24] MEDS: PIPERACILLIN-TAZO 3.375 GM/50 ML FROZ.PIGGY IV ×3 (03:17→19:04)
[2019-11-24] MEDS: metroNIDAZOLE 500 MG/100 ML PIGGYBACK 100 MG IV ×3 (03:49→21:31)
[2019-11-24 05:15] LABS: Add Manual Diff / Slide Review NO; Basophils Absolute Auto 100 /uL (0-100); Basophils Percent Auto 1.2 % (0-2); Eosinophils Absolute Auto 900 /uL (0-450); Eosinophils Percent Auto 7.2 % (2-4); Hematocrit 40.3 % (41-53); Hemoglobin 13.8 g/dL (13.5-17.5); Lymphocytes Absolute Auto 2800 /uL (1100-4500); Mean Corpuscular HGB Conc 34.4 % (30-36); Mean Corpuscular Hemoglobin 34.3 PG (26-34); Mean Corpuscular Volume 99.7 fL (80-100); Monocytes Absolute Auto 1800 /uL (0-900); Monocytes Percent Auto 15.2 % (3-14); Neutrophils Absolute Auto 6200 /uL (1500-7000); Neutrophils Percent Auto 52.4 % (50-75); Platelet Count 334 X10^3/uL (150-400); Red Blood Cell Count 4.04 X10^6/uL (4.5-5.9); Red Cell Distribution Width 13.3 % (11.6-14.8); White Blood Cell Count 11.8 X10^3/uL (4.5-11.0)
[2019-11-24 05:23] LABS: BUN Creatinine Ratio 15.4 (6-22); Blood Urea Nitrogen 12 mg/dL (9-20); Calcium 8.7 mg/dL (8.4-10.2); Carbon Dioxide 32 mmol/L (22-32); Chloride 107 mmol/L (98-107); Estimated Glomerular Filt Rate > 60.0 mL/min (>60); Glucose 99 mg/dL (70-100); HEMOLYSIS < 15 (0-50); Magnesium 1.9 mg/dL (1.6-2.3); Phosphorous 4.4 mg/dL (2.5-4.5); Potassium 3.6 mmol/L (3.4-5.1); Sodium 141 mmol/L (137-145)
[2019-11-24] MEDS: SODIUM CHLORIDE 0.9% FLUSH 10 ML IV ×2 (05:31→17:19)
[2019-11-24] MEDS: SODIUM CHLORIDE 0.9% 250 ML 21 ML IV (10:29)
[2019-11-24] MEDS: NICOTINE 7 MG PATCH TOP (10:35)
[2019-11-24] MEDS: ENOXAPARIN 30 MG/0.3 ML SYRINGE SUBCUT (10:35)
--- NOTE | 2019-11-24 10:47 | PM.PN.1 ---
Subjective Subjective Date Patient Seen: 11/24/19 Time Patient Seen: 10:47 Interval history: Pain not well controlled. Denies nausea. Exam Vital Signs (past 8 hours): - 11/24/19 03:00 11/24/19 04:45 11/24/19 07:00 Temperature 98.0 F 97.8 F Pulse Rate 65 48 L Respiratory Rate 18 18 Blood Pressure 124/80 129/82 Pulse Oximetry 97 98 97 Oxygen Delivery Method Room Air Oxygen Flow Rate 0 Narrative Exam Narrative: Narrative: General-adult male who appears uncomfortable, alert, oriented HEENT-moist mucous membranes, no scleral icterus Neck-supple, no lymphadenopathy Chest- non labored respirations, nontachypneic Cardiac-regular rate no peripheral edema Abdomen-mildly distended; incision c/d/i with mild echymosis at lower end; no cellulitis; no drainage; ostomy p/p/p with some thick and thin stool in the bag Extremities-warm, well perfused Neurological-alert and oriented, no focal deficits Objective Labs Result Diagrams: 11/24/19 04:43 11/24/19 04:43 Labs: Laboratory Results - last 24 hr 11/24/19 11/24/19 04:43 04:43 WBC 11.8 H RBC 4.04 L Hgb 13.8 Hct 40.3 L MCV 99.7 MCH 34.3 H MCHC 34.4 RDW 13.3 Plt Count 334 Neut % (Auto) 52.4 D Lymph % (Auto) 24.0 L [place] % (Auto) 15.2 H Eos % (Auto) 7.2 H Baso % (Auto) 1.2 Neut # (Auto) 6200 Lymph # (Auto) 2800 [place] # (Auto) 1800 H Eos # (Auto) 900 H Baso # (Auto) 100 Sodium 141 Potassium 3.6 Chloride 107 Carbon Dioxide 32 BUN 12 Creatinine 0.78 Estimated GFR > 60.0 BUN/Creatinine Ratio 15.4 Glucose 99 Calcium 8.7 Phosphorus 4.4 D Magnesium 1.9 Assessment & Plan Assessment and plan (1) Diverticulitis of colon with perforation: Qualifiers: Diverticulitis bleeding: unspecified bleeding status Qualified Code(s): K57.20 - Diverticulitis of large intestine with perforation and abscess without bleeding Current visit: Yes Status: Acute Assessment & Plan narrative: POD #3 s/p sigmoid colectomy and diverting ileostomy for perforated diverticulitis. Leukocytosis is resolving. Tolerating PO. Ostomy output is good. Pain is not well controlled. Plan: Adjust pain meds to include scheduled narcotic, gabapentin, tylenol and ibuprofen PRN IV pain med for breakthrough Continue abx today Follow up ostomy teaching tomorrow with patient's dispo planning COVID-19 COVID-19 status: Negative Time Spent With Patient Time with patient: 25 - 35 minutes Quality VTE Deep Vein Thrombosis/Pulmonary Embolism Present on Admission: No
[2019-11-24] MEDS: OXYCODONE ER 10 MG TAB 20 MG PO ×2 (11:36→20:28)
[2019-11-24] MEDS: GABAPENTIN 300 MG CAPSULE PO ×3 (11:38→20:28)
--- NOTE | 2019-11-24 13:28 | CM.DPNOTE ---
DCP Cont Spoke w/Marie Williamson re: DCP; she requests assist in coordinating teaching at bedside w/spouse Aryan Wednesday morning. Placed call to spouse Aryan and she can arrive at 1000 Wednesday for teaching w/Marie. Aryan is prepared to transport patient home if he is medically stable for DC tomorrow, no concerns about patient's DC home at this time. Updated Marie Williamson P# [phone] w/above. P: DC likely w/in 24-48 hrs, home w/spouse/family after teaching completed, close outpt f/u. No needs from ANODE WORKER/DCP team identified at this time, will remain available in case this changes. Federica Seymour MSW
--- NOTE | 2019-11-24 15:47 | PC.NURSE ---
AM shift Pain control continues to be an issue, addresed with Dr Britton on rounding. Medications added. Pt somewhat disagreeable to PO Ibuprofen, prefers toradol. Discussed need for PO pain control to be adequate prior to d/c home. Pt understands and reports poor tolerance for pain today. Indep in room ,ileostomy with good output. Pt is doing all care, and feels confident in diet choices and d/c care at home. Potential to d/c home sat after teaching with myla industrial cleaner and .
[2019-11-24] MEDS: ACETAMINOPHEN 325 MG TABLET 650 MG PO (18:12)
[2019-11-25] VITALS: BP 108/68; PULSE 60; RESP 16; TEMP 36.1; O2SAT 96
[2019-11-25 00:30] VITALS: O2SAT 99
[2019-11-25] MEDS: OXYCODONE IR 5 MG TABLET 10 MG PO ×4 (01:08→12:25)
[2019-11-25] MEDS: ACETAMINOPHEN 325 MG TABLET 650 MG PO ×3 (01:08→12:25)
[2019-11-25] MEDS: KETOROLAC 30 MG/ML VIAL IV ×2 (01:09→08:35)
[2019-11-25] MEDS: PIPERACILLIN-TAZO 3.375 GM/50 ML FROZ.PIGGY IV ×2 (03:16→10:29)
[2019-11-25] MEDS: metroNIDAZOLE 500 MG/100 ML PIGGYBACK 100 MG IV ×2 (04:03→08:53)
[2019-11-25 04:49] VITALS: O2SAT 99
[2019-11-25 04:57] LABS: Add Manual Diff / Slide Review NO; Basophils Absolute Auto 100 /uL (0-100); Basophils Percent Auto 0.9 % (0-2); Eosinophils Absolute Auto 900 /uL (0-450); Eosinophils Percent Auto 8.2 % (2-4); Hematocrit 42.6 % (41-53); Hemoglobin 14.8 g/dL (13.5-17.5); Lymphocytes Absolute Auto 3000 /uL (1100-4500); Mean Corpuscular HGB Conc 34.9 % (30-36); Mean Corpuscular Hemoglobin 34.5 PG (26-34); Mean Corpuscular Volume 98.9 fL (80-100); Monocytes Absolute Auto 1600 /uL (0-900); Monocytes Percent Auto 15.4 % (3-14); Neutrophils Absolute Auto 4900 /uL (1500-7000); Neutrophils Percent Auto 46.5 % (50-75); Platelet Count 376 X10^3/uL (150-400); Red Blood Cell Count 4.31 X10^6/uL (4.5-5.9); White Blood Cell Count 10.5 X10^3/uL (4.5-11.0)
[2019-11-25 05:02] LABS: BUN Creatinine Ratio 16.5 (6-22); Blood Urea Nitrogen 13 mg/dL (9-20); Carbon Dioxide 32 mmol/L (22-32); Chloride 104 mmol/L (98-107); Estimated Glomerular Filt Rate > 60.0 mL/min (>60); Glucose 91 mg/dL (70-100); HEMOLYSIS < 15 (0-50); Sodium 140 mmol/L (137-145)
[2019-11-25 05:24] VITALS: BP 123/71; PULSE 63; RESP 18; TEMP 36; O2SAT 99
[2019-11-25] MEDS: IBUPROFEN 400 MG TABLET 800 MG PO (05:29)
[2019-11-25 08:00] VITALS: BP 133/82; PULSE 51; RESP 14; TEMP 36.6; O2SAT 99
[2019-11-25] MEDS: NICOTINE 7 MG PATCH TOP (08:30)
[2019-11-25] MEDS: GABAPENTIN 300 MG CAPSULE PO (08:30)
[2019-11-25] MEDS: SODIUM CHLORIDE 0.9% FLUSH 10 ML IV (08:35)
[2019-11-25] MEDS: PSYLLIUM HUSK 1 PACKET PO (08:35)
[2019-11-25] MEDS: OXYCODONE ER 10 MG TAB 20 MG PO (08:35)
[2019-11-25 10:46] VITALS: O2SAT 98
--- NOTE | 2019-11-25 11:16 | PM.DS.1 ---
History of Present Illness History of Present Illness Chief complaint: Multiple perforations in colon Narrative: Sebas is a 44-year-old man who is admitted with acute diverticulitis. He was admitted to [facility] 3 days ago with diverticulitis with microperforation. Yesterday he had worsening of his abdominal pain had a repeat CT scan at the OSH that demonstrated multiple microperforations and continued treatment with Zosyn. Today he left AMA and presents to our ER with worsening abdominal pain. No nausea vomiting or diarrhea. Today WBC on admission 18, 91% neutrophils. Past surgical history of splenectomy for trauma. He is a current daily smoker and not on anticoagulation. No prior colonoscopy or family history of intestinal malignancy. Discharge Providers Provider Date of admission: 11/21/19 11:13 Discharge Date: 11/25/19 Consults: 11/21/19 10:52 Consult to General Surgery Stat Comment: Consulting Provider: Avi Diego Reason for consultation: admission Has provider been notified: Yes 11/21/19 12:50 Consult to Respiratory Therapy Evaluate & Treat Comment: Physician Instructions: Evaluate and treat 11/22/19 10:43 Consult to Ostomy Specialist Routine Comment: Ozzie flood. ostomy Consulting Provider: Avi Diego Discharge provider: Avi Diego MD Summary Hospital Course Discharge Diagnosis: Peritonitis Sepsis Diverticulitis with perforation Hospital Course: 44-year-old man presented with perforated diverticulitis was taken to the operating room for a sigmoidectomy and loop ileostomy on 11/21/2019. Intraoperatively he had purulent peritonitis and was maintained on Zosyn postoperatively for intra-abdominal contamination. He did well following the operation and had a resolution of his sepsis as well as his leukocytosis and fever. He and his received ostomy teaching. His ostomy output has been on the order of less than 1 L per day. Did have significant issues obtaining adequate pain control and has required OxyContin, oxycodone, ibuprofen, Tylenol and gabapentin to manage his pain. On the day of discharge he is feeling well he is tolerating regular diet he is without fever leukocytosis he is urinating normally ambulatory and stable for discharge home. Status at Discharge Cognitive/behavioral status at discharge: oriented Functional status at discharge: independent ambulation Time Spent with Patient Time spent: Greater than 30 minutes Exam Vital Signs (past 8 hours): - 11/25/19 04:49 11/25/19 05:24 11/25/19 08:00 Temperature 96.8 F L 97.8 F Pulse Rate 63 51 L Respiratory Rate 18 14 Blood Pressure 123/71 133/82 Pulse Oximetry 99 99 99 11/25/19 10:46 Temperature Pulse Rate Respiratory Rate Blood Pressure Pulse Oximetry 98 Oxygen Delivery Method Room Air Oxygen Flow Rate 0 Narrative Exam Narrative: General adult male alert oriented no acute distress Chest nonlabored respiration Abdomen soft incision clean dry intact with wilberto ostomy viable Objective Labs Result Diagrams: 11/25/19 04:35 11/25/19 04:35 Labs: Laboratory Results - last 24 hr 11/25/19 11/25/19 04:35 04:35 WBC 10.5 RBC 4.31 L Hgb 14.8 Hct 42.6 MCV 98.9 MCH 34.5 H MCHC 34.9 RDW 13.0 Plt Count 376 Neut % (Auto) 46.5 L Lymph % (Auto) 29.0 [place] % (Auto) 15.4 H Eos % (Auto) 8.2 H Baso % (Auto) 0.9 Neut # (Auto) 4900 Lymph # (Auto) 3000 [place] # (Auto) 1600 H Eos # (Auto) 900 H Baso # (Auto) 100 Sodium 140 Potassium 4.0 Chloride 104 Carbon Dioxide 32 BUN 13 Creatinine 0.79 Estimated GFR > 60.0 BUN/Creatinine Ratio 16.5 Glucose 91 Calcium 9.0 Magnesium 2.0 Discharge Plan Discharge Plan Patient Disposition: Home Discharge orders & Medications Prescriptions: New acetaminophen 325 mg Tablet 650 mg PO Q6HR Qty: 60 RF: 0 gabapentin [Neurontin] 300 mg Capsule 300 mg PO TID Qty: 60 RF: 0 oxycodone 5 mg Tablet 10 mg PO Q4HR PRN (Reason: Pain, Severe (7-10)) Qty: 40 RF: 0 Metamucil Fiber Singles 3.4 gram Powder In Packet 1 packet PO DAILY 60 Days RF: 0 oxycodone [OxyContin] 10 mg Tablet,Oral Only,Ext.Rel.12 Hr 20 mg PO BID Qty: 30 RF: 0 Continued ibuprofen 600 mg Tablet 600 mg PO BID Qty: 0 RF: 0 Follow up/Referrals: Avi Diego MD [Physician] - Diet/Activity/Treatments Diet: Regular Activity: No lifting >20 lbs x 4 weeks. Walking only for exercise for [address] while taking narcotics. Skin/Wound/Dressing Care Report to your healthcare provider any signs of infection, such as:: chills, fever, increased pain and unusual redness Quality VTE Deep Vein Thrombosis/Pulmonary Embolism Present on Admission: No
--- NOTE | 2019-11-25 12:30 | PC.NURSE ---
Ostomy Nurse Consult Note Sebas looks very good today and his is here for ostomy teaching. We reviewed pouching appliances, crusting technique, accessories, nutrition and food blockage. Rosalia, his practice with the stoma model. Dr. Diego came in during the teaching session and will discharge Sebas today. He also instructed me to remove the loop ileostomy bar. After Rosalia practiced and I answered questions I removed the bar and Sebas changed his appliance with my stand-by assistance. Sebas removed his appliance and molded and attached a new appliance without any difficulty. He is very confident and eager to take care of his own stoma. Rosalia did a great job with understanding taking care of the stoma as well. She asked several questions regarding nutrition and I feel they will do well. The stoma is slightly swollen, beefy red, moist and measures 33mm. The peristomal sutures are intact. He was placed in a [employer] 45mm moldable two piece non-filter pouch. This is the appliance he wants so I ordered him samples from [employer] and will follow up with Sebas at [facility] at his first post-op appointment. I also changed the mid-line surgical incision dressing. The wilberto are intact. He does have some ecchymosis at the distal end of the incision line. I used two 4x4 folded and two opsite dressings. I gave ostomy supplies and some dressing supplies to Sebas and will set him up for DME when I see him at his post-op appointment.
--- NOTE | 2019-11-25 12:53 | PC.NURSE ---
pt with pain control issues which seem to be resolving -- discharge to home after long meeting with shayan lima ( wound care)
== END 2019-11-25 12:53 | disposition home or self-care (01) | DRG 331 ==
LOC: ED 10:53 → AC 11:14 → ICU 13:12 → AC 11-22 09:49
PROVIDERS: Surgery; Admitting Provider Surgery; Emergency Provider Emergency Medicine; Referring Provider Emergency Medicine; Visit Provider Surgery
PROC: 0DBN0ZZ Excision of Sigmoid Colon, Open Approach (ICD-10-PCS; CPT 49000; principal; 2019-11-21 13:30)
DX: K57.20 Diverticulitis of large intestine with perforation and abscess without bleeding (principal); F17.210 Nicotine dependence, cigarettes, uncomplicated; Z11.59 Encounter for screening for other viral diseases
CPT/HCPCS: 36415; 44160; 74177; 80048; 80053; 81001; 83605; 83690; 83735; 84100; 84145; 85025; 87635; 87797; 90471; 90656; 96361; 96365; 96375; 99223; 99284; 99406; J0131; J0330; J1100; J1170; J1200; J1650; J1885; J2060; J2250; J2270; J2274; J2405; J2543; J2704; J3010; J3410; J3480; Q2038; Q9967

== ENCOUNTER → 2020-02-02 12:26 | Outpatient (CLI) | payer OTHER, SELFPAY ==
[2019-11-21 12:33] VITALS: BMI 22.6
--- NOTE | 2020-02-02 12:28 | DI.RAD.S_ITS ---
PROCEDURE: FL BARIUM ENEMA INDICATIONS: Preoperative ileostomy reversal planning after partial sigmoid colectomy. The patient underwent partial sigmoidectomy for acute diverticulitis previously, with primary reanastomosis, and ileostomy for postoperative care. No current signs or symptoms of pelvic infection or sigmoid colon anastomotic leak. COMPARISON: None. FINDINGS: KUB: Preprocedural content designer film demonstrates a normal bowel gas pattern. Ileostomy site right lower quadrant. No suspicious abdominal calcifications. Visualized solid organ contours appear normal in size. No suspicious bony lesions. Colon: There is adequate opacification of the entire colon. No strictures or extrinsic mass effects are identified. No colonic fistulae or perforations. Colon caliber appears normal. IMPRESSION: Excellent appearance of the rectum and sigmoid colon remaining, no sign of stricture or extrinsic mass effect. Minimal diverticulosis remains at the lower aspect of the descending colon. The left colon filled with contrast was evaluated fluoroscopically, no contraindication to operative intervention in take-down of ileostomy is identified. Dictated by: Justin Hawk M.D. on 02/02/2020 at 14:05 Approved by: Justin Hawk M.D. on 02/02/2020 at 14:08
== END ==
PROVIDERS: Referring Provider Surgery; Visit Provider Surgery
DX: Z01.818 Encounter for other preprocedural examination (principal); K57.20 Diverticulitis of large intestine with perforation and abscess without bleeding; Z93.2 Ileostomy status
CPT/HCPCS: 74270

== ENCOUNTER → 2020-02-03 15:41 | Outpatient (CLI) | payer OTHER, SELFPAY ==
[2019-11-21 12:33] VITALS: BMI 22.6
[2020-02-05 20:40] LABS: COVID19 Sendout Not Detected (Not Detect)
== END ==
PROVIDERS: Visit Provider Physician Assistant
DX: Z11.59 Encounter for screening for other viral diseases (principal)
CPT/HCPCS: 87635

== ENCOUNTER 2020-02-06 02:32 | Inpatient (IN) | payer OTHER, SELFPAY ==
[2019-11-21 12:33] VITALS: BMI 22.6
[2020-02-06] VITALS (25 sets, daily range): BP systolic 95–166; BP diastolic 54–109; PULSE 65–110; RESP 10–21; TEMP 36.3–37.1; O2SAT 94–99; BMI 20.9; BMI 19.7
--- NOTE | 2020-02-06 | PATH_ITS ---
[facility] Accession Number: [id number] . 01 Material submitted: . colon - ILEOSTOMY . 02 Diagnosis: Ileostomy, Ileostomy Takedown: Consistent with stoma. No evidence of neoplasm. [facility] 02/08/2020 1307 Local . 02 Electronically signed: . Delon Scott MD, PhD, Pathologist NPI- [id number] . 01 Gross description: . Specimen A is received in formalin, labeled with patient identification and ileostomy. It consists of an unoriented segment of small bowel measuring 6.2 cm in length and 1.6 cm in diameter. Two ends are stapled shut and randomly designated as margin 1 and margin 2. 1.7 cm from margin 1 and 2.3 cm from margin 2 is a brown-miller and hemorrhagic exposed mucosal opening which is partially sutured shut. An annular rim of shipley-miller skin is present at the opening. The serosa is pink-miller dull and focally ragged. Opening the specimen reveals dark red to brown and hemorrhagic mucosa at the exposed mucosal opening. The remaining mucosa is yellow-miller with normal folding. Chip Separator sections are submitted in four cassettes. . Summary of sections: A1 - margin 1, shaved, one piece. A2 - margin 2, shaved, one piece. A3 - industrial relations representative sections of mucosa between margin 1 and the opening, two pieces. A4 - industrial relations representative sections of the mucosa between margin 2 and the opening, two pieces. ([id number]) /[facility] 02/07/2020 1048 Local . 02 Pathologist provided ICD-10: Z43.2 . 02 CPT . 085941 Performed at: 01 [facility] [address], [place], [place] [id number] MD Toni Johnson MD Phone: [phone] Performed at: 02 [facility] [id number] [place] [id number] MD Federica Worley MD Phone: [phone]
--- NOTE | 2020-02-06 02:34 | ED_ITS ---
HPI - Headache General Chief Complaint: Weakness Stated Complaint: leg/arm cramping massive headache Time Seen by Provider: 02/06/20 02:34 Source: patient Mode of arrival: Ambulatory Limitations: no limitations History of Present Illness HPI Narrative: 44M daily smoker with a history of diverticulitis presents with the chief complaint of headache and extremity cramping. He states he is scheduled for a reversal of his ostomy later this morning with 1 of our surgeons. He was initially here in November and had diverticulitis with perforation which resulted in colon resection. Next about 2:00 p.m. yesterday he has had increased output in his bag and has become increasingly fatigued over the course of the day. He now has a pounding headache as stated. He denies any fever or chills. He was unable to complete the bowel prep as requested. Related Data Home Medications Medication Instructions Recorded Confirmed ibuprofen 800 mg PO BID #0 05/01/06 02/01/20 Previous Rx's Medication Instructions Recorded erythromycin 500 mg tablet 1,000 mg PO TID #6 tab 01/29/20 neomycin 500 mg tablet 1 gram PO TID 0 Days #6 tab 01/29/20 Allergies Allergy/AdvReac Type Severity Reaction Status Date / Time hydromorphone [From Dilaudid] Allergy Mild ITCHING Verified 02/03/20 15:41 Review of Systems Constitutional Constitutional: Denies chills, Reports fatigue, Denies fever(s), Denies frequent falls, Reports headache(s), Reports lethargy and Reports weakness Eyes Eyes: Denies change in vision, Denies eye discharge, Denies irritation and Denies loss of vision ENT Ears, Nose, Mouth, and Throat: Denies change in voice, Denies dizziness, Reports headache(s), Denies neck pain, Denies sore throat and Denies throat swelling Cardiovascular Cardiovascular: Denies chest pain, Denies irregular heart rhythm, Denies lightheadedness, Denies palpitations, Denies dyspnea, Denies dyspnea on exertion and Denies orthopnea Respiratory Respiratory: Denies cough, Denies dyspnea, Denies dyspnea on exertion and Denies wheezing Gastrointestinal Gastrointestinal: Denies abdominal pain, Denies change in bowel habits, Denies diarrhea, Denies nausea and Denies vomiting Comments: increased passage of liquidy stool in ostomy Musculoskeletal Musculoskeletal: Denies neck pain and Denies numbness Integumentary/Breasts Skin/Breast: Denies pruritus, Denies erythema, Denies rash and Denies wounds Neurologic Neurologic: Denies behavioral changes, Denies confusion, Denies dizziness, Denies frequent falls, Reports headache(s), Denies loss of vision, Denies numbness and Reports weakness Psychiatric Psychiatric: Denies anxiety, Denies behavioral changes, Denies confusion, Denies depression, Denies homicidal ideation and Denies suicidal ideation Endocrine Endocrine: Reports fatigue, Denies flushing and Denies palpitations Hematologic/Lymphatic Hematologic/Lymphatic: Denies easy bruising Allergic/Immunologic Allergic/Immunologic: Denies urticaria, Denies throat swelling and Denies wheezing Patient History Medical History (Updated 02/06/20 @ 03:19 by Alejandro Hagan DO) Compression fracture (Acute) Diverticulitis (Acute) Hearing impaired (Acute) Ileostomy in place (Acute) Left hand fracture (Acute) Surgical History (Updated 02/01/20 @ 13:25 by Selin Tejeda RN) History of ear surgery (Acute) History of splenectomy (Acute) Hx of exploratory laparotomy (Acute 11/21/19) Social History household members: spouse and children Smoking Status: Current every day smoker alcohol intake: current Smoking Status: Current every day smoker alcohol intake frequency: a few times a week Substance Use Type: does not use Exam Narrative Exam Narrative: GENERAL: [44] year old patient appears stated age. Well- nourished, well-developed patient, in mild distress. Rubbing his temples HEAD: Atraumatic. Normocephalic. EYES: Pupils equal round and reactive. Extraocular motions intact. No scleral icterus. No injection or drainage. ENT: Dry mucous membranes. Nose without bleeding, purulent drainage. Throat without erythema, tonsillar hypertrophy or exudate. Airway patent. NECK: Trachea midline. Non tender CARDIOVASCULAR: Regular rate and rhythm without murmurs, gallops, or rubs. RESPIRATORY: Clear to auscultation. Breath sounds equal bilaterally. No wheezes, rales, or rhonchi. GASTROINTESTINAL: Abdomen soft, non-tender, nondistended. Liquidy stool in ostomy EXTREMITIES: No edema or joint tenderness. BACK: Nontender without deformity or crepitance. No flank tenderness. NEURO: AOx3. SKIN: No rash or erythema of visible areas Initial Vital Signs Initial Vital Signs: Vital Signs Temperature 97.6 F 02/06/20 02:56 Pulse Rate 110 H 02/06/20 02:56 Respiratory Rate 20 02/06/20 02:56 Blood Pressure 120/103 H 02/06/20 02:56 Pulse Oximetry 99 02/06/20 02:56 Course Course Course Narrative: patient feeling better after fluids, headache improved, no more cramping. Orders Ordered: ED Orders 02/06/20 02:50 Basic Metabolic Panel Stat Complete Blood Count AUTO DIFF Stat Lactated Ringer's (Lactated Ringers) 1,000 mls @ 1,000 mls/hr IV BOLUS ONE Stop: 02/06/20 03:51 Last Admin: 02/06/20 02:57 Dose: 1,000 mls/hr Documented by: DANIELLE Consultations Consultation #1: call to Dr. Quinteros. Request to admit into hospital, under Dr. Diego's service. Ongoing fluids, otherwise no other orders needed. Vital Signs Vital signs: Vital Signs - 8 hr 02/06/20 02:56 Temperature 97.6 F Pulse Rate 110 H Respiratory Rate 20 Blood Pressure 120/103 H Pulse Oximetry 99 MDM - Headache Lab Data Result diagrams: 02/06/20 02:50 02/06/20 02:50 Labs: Lab Results 02/06/20 02/06/20 Range/Units 02:50 02:50 WBC 14.0 H (4.5-11.0) X10^3/uL RBC 5.36 (4.5-5.9) X10^6/uL Hgb 18.5 H (13.5-17.5) g/dL Hct 53.3 H (41-53) % MCV 99.5 (80-100) fL MCH 34.6 H (26-34) PG MCHC 34.8 (30-36) % RDW 13.6 (11.6-14.8) % Plt Count 330 (150-400) X10^3/uL Neut % (Auto) 60.2 (50-75) % Lymph % (Auto) 25.4 (25-40) % [place] % (Auto) 11.9 (3-14) % Eos % (Auto) 1.7 L (2-4) % Baso % (Auto) 0.8 (0-2) % Neut # (Auto) 8400 H (5464-0758) /uL Lymph # (Auto) 3600 (7545-3933) /uL [place] # (Auto) 1700 H (0-900) /uL Eos # (Auto) 200 (0-450) /uL Baso # (Auto) 100 (0-100) /uL Sodium 134 L (137-145) mmol/L Potassium 4.1 (3.4-5.1) mmol/L Chloride 100 (98-107) mmol/L Carbon Dioxide 22 (22-32) mmol/L BUN 18 (9-20) mg/dL Creatinine 1.19 (0.66-1.25) mg/dL Estimated GFR > 60.0 (>60) mL/min BUN/Creatinine Ratio 15.1 (6-22) Glucose 114 H (70-100) mg/dL Calcium 10.4 H (8.4-10.2) mg/dL Discharge Plan Departure Patient Disposition: Admitted As Inpatient Clinical Impression: Acute dehydration Headache Qualifiers: Headache type: unspecified Headache chronicity pattern: acute headache Intractability: not intractable Qualified Code(s): R51 - Headache Diarrhea Qualifiers: Diarrhea type: unspecified type Qualified Code(s): R19.7 - Diarrhea, unspe cified
[2020-02-06] MEDS: LACTATED RINGERS 1,000 ML 1000 ML IV (02:57)
[2020-02-06 03:09] LABS: Basophils Absolute Auto 100 /uL (0-100); Basophils Percent Auto 0.8 % (0-2); Eosinophils Absolute Auto 200 /uL (0-450); Eosinophils Percent Auto 1.7 % (2-4); Hematocrit 53.3 % (41-53); Hemoglobin 18.5 g/dL (13.5-17.5); Lymphocytes Absolute Auto 3600 /uL (1100-4500); Lymphocytes Percent Auto 25.4 % (25-40); Mean Corpuscular HGB Conc 34.8 % (30-36); Mean Corpuscular Hemoglobin 34.6 PG (26-34); Mean Corpuscular Volume 99.5 fL (80-100); Monocytes Absolute Auto 1700 /uL (0-900); Monocytes Percent Auto 11.9 % (3-14); Neutrophils Absolute Auto 8400 /uL (1500-7000); Neutrophils Percent Auto 60.2 % (50-75); Platelet Count 330 X10^3/uL (150-400); Red Blood Cell Count 5.36 X10^6/uL (4.5-5.9); Red Cell Distribution Width 13.6 % (11.6-14.8)
[2020-02-06 03:10] LABS: Add Manual Diff / Slide Review SLIDE REVIEW
[2020-02-06 03:12] LABS: BUN Creatinine Ratio 15.1 (6-22); Blood Urea Nitrogen 18 mg/dL (9-20); Calcium 10.4 mg/dL (8.4-10.2); Carbon Dioxide 22 mmol/L (22-32); Chloride 100 mmol/L (98-107); Estimated Glomerular Filt Rate > 60.0 mL/min (>60); Glucose 114 mg/dL (70-100); HEMOLYSIS 42 (0-50); Potassium 4.1 mmol/L (3.4-5.1); Sodium 134 mmol/L (137-145)
[2020-02-06 03:53] LABS: RBC Morphology Normal Morphology
[2020-02-06] MEDS: LACTATED RINGERS 1,000 ML 150 ML IV ×3 (03:56→22:34)
[2020-02-06] MEDS: MORPHINE 4 MG/ML INJ IV (04:18)
--- NOTE | 2020-02-06 05:52 | PC.NURSE ---
Pt is AxOx4. Complained of 9/10 severe cramping throughout body. Dr. Quinteros called and ordered Morphine 4mg IV X1 Pt denies any nausea Ileostomy looks good, beefy red. Liquid brown/green output. States it produced large amounts of output prior to admit. Pt states hes lost probably over 10lbs in the past few months. LR@150mL/hr Kept NPO
[2020-02-06] MEDS: LACTATED RINGERS 1,000 ML 42 ML IV ×2 (07:27→09:40)
--- NOTE | 2020-02-06 07:31 | PC.NURSE ---
Day Shift- Pt not in room at this time, already taken to surgery prior to shift change.
--- NOTE | 2020-02-06 07:40 | PM.HP.1 ---
History of Present Illness History of Present Illness Date Patient Seen: 02/06/20 Time Patient Seen: 07:40 Chief complaint: leg/arm cramping massive headache Narrative: 44-year-old man with a sigmoid colectomy 8 weeks ago with diverting ileostomy is here for ileostomy reversal. Preoperatively he became dehydrated he was admitted overnight received IV fluid hydration and is now ready for the operating room. Please refer to was H&P from 01/30 for further detail. Patient History Medical History Compression fracture (Acute) Diverticulitis (Acute) Hearing impaired (Acute) Ileostomy in place (Acute) Left hand fracture (Acute) Surgical History History of ear surgery (Acute) History of splenectomy (Acute) Hx of exploratory laparotomy (Acute 11/21/19) Family & Social History Social History: household members spouse,children Prior Living Arrangements House Safety & Behavioral: Feels Safe in Current Yes Environment Been Physically Hurt or No Threatened By a Person Suicidal Ideation Description None Suicide Plan Description No Plan Tobacco & Substance use: Tobacco type cigarettes Smoking Status Current every day smoker Smoking packs per day 1 alcohol intake current alcohol intake frequency a few times a week Substance Use Type does not use Meds Home Medications and Allergies Home Medications Medication Instructions Recorded Confirmed Type ibuprofen 800 mg PO BID #0 05/01/06 02/06/20 History erythromycin 500 mg tablet 1,000 mg PO TID #6 tab 01/29/20 02/06/20 Rx neomycin 500 mg tablet 1 gram PO TID 0 Days #6 tab 01/29/20 02/06/20 Rx omeprazole 20 mg PO DAILY 02/06/20 02/06/20 History Allergies Allergy/AdvReac Type Severity Reaction Status Date / Time hydromorphone [From Dilaudid] Allergy Mild ITCHING Verified 02/03/20 15:41 Review of Systems Review of Systems Narrative: A 10 point review of systems is negative except as noted in the HPI Exam Vital Signs (past 8 hours): - 02/06/20 02:56 02/06/20 03:30 02/06/20 04:12 Temperature 97.6 F 98.2 F Pulse Rate 110 H 81 85 Respiratory Rate 20 16 18 Blood Pressure 120/103 H 120/76 124/90 Pulse Oximetry 99 97 98 02/06/20 07:28 Temperature 97.5 F L Pulse Rate 72 Respiratory Rate 16 Blood Pressure 117/78 Pulse Oximetry Oxygen Delivery Method Room Air Oxygen Flow Rate 98 Narrative Exam Narrative: General-no acute distress, well nourished HEENT-moist mucous membranes, no scleral icterus Neck-supple, no lymphadenopathy Chest- non labored respirations, clear to auscultation bilaterally Cardiac-regular rate no peripheral edema Abdomen-functioning ileostomy Extremities-warm, well perfused Neurological-alert and oriented, no focal deficits Objective Labs Result Diagrams: 02/06/20 02:50 02/06/20 02:50 Labs: Laboratory Results - last 24 hr 02/06/20 02/06/20 02:50 02:50 WBC 14.0 H RBC 5.36 Hgb 18.5 H Hct 53.3 H MCV 99.5 MCH 34.6 H MCHC 34.8 RDW 13.6 Plt Count 330 Neut % (Auto) 60.2 Lymph % (Auto) 25.4 [place] % (Auto) 11.9 Eos % (Auto) 1.7 L Baso % (Auto) 0.8 Neut # (Auto) 8400 H Lymph # (Auto) 3600 [place] # (Auto) 1700 H Eos # (Auto) 200 Baso # (Auto) 100 RBC Morphology Normal morphology Sodium 134 L Potassium 4.1 Chloride 100 Carbon Dioxide 22 BUN 18 Creatinine 1.19 Estimated GFR > 60.0 BUN/Creatinine Ratio 15.1 Glucose 114 H Calcium 10.4 H Assessment & Plan Assessment and plan (1) Ileostomy in place: Status: Acute Assessment & Plan narrative: 44-year-old man with a sigmoid colectomy with diverting ileostomy for perforated diverticulitis 8 weeks ago here for ileostomy reversal. I reviewed his barium enema from last week which demonstrates no pathology of his sigmoid anastomosis. We discussed the technical nature of the procedure the operative risks including bleeding infection anastomotic leak damage to surrounding structures. His questions have been answered and he is in agreement with this plan will proceed to the operating room. COVID-19 COVID-19 status: Negative
[2020-02-06] MEDS: PIPERACILLIN-TAZO 3.375 GM/50 ML FROZ.PIGGY IV (07:45)
--- NOTE | 2020-02-06 08:08 | SUR.OPER ---
Supine on padded OR bed, head on pillow, arms secured on padded arm boards at <90 degrees abduction, legs uncrossed, safety belt at thigh.
[2020-02-06] MEDS: BUPIVACAINE 0.25% (PF) VIAL 30 ML INJ (08:12)
--- NOTE | 2020-02-06 08:39 | DIET.PN ---
Dietary Progress Note RD met c pt for pre-surgery nutrition education on 01/31/2020 (note enclosed below). Pt has been supplementing c Muscle Milk daily as well as electrolytes to optimize nutrition for his upcoming ileostomy reversal c Brandie. Pt reports leg/arm cramping c severe headache found to be dehydration while prepping for colon cleanout prior to arranged surgery. Pt did not finish this protocol and is in surgery this am. Plan to include ONS once assigned diet with bid Ensure Surgery starting once on full liquid diet. RD pre-surgery nutrition consultation: Pt is 44y M 8w s/p ileostomy for sigmoid colectomy secondary to multiple perforation diverticulitis. Pt has been compliant c ileostomy nutrition yet has lost 10# since surgery (-4.3% in 2mo, non-severe weight loss). Pt has ileostomy reversal scheduled for 02/06/2020. Discussed adequate nutrition to prepare body tissues for healing after procedure. Pt has been drinking LiquidIV packets (4x/d) which contain 100% DRI Vitamin C, B vits, and electrolytes. Pt has been drinking Muscle Milk several times per week in addition to his normal amount of meat/dairy for protein. Encouraged pt to continue LiquidIV daily, Muscle Milk x1 daily, and increase PRO servings by 1/4 per meal until time to start prep for procedure. Pt willing to follow this advice and appreciative for check in. RD to f/u c pt in AC once admitted to floor.
--- NOTE | 2020-02-06 09:13 | PM.OP.1 ---
Operative Date/Time/Diagnoses Date of procedure: 02/06/20 Time of procedure: 09:13 Pre-op diagnosis: Ileostomy in place Post-op diagnosis: same Procedure & Clinicians Procedure: Ileostomy reversal Same procedure as scheduled: Yes Indications: 44-year-old male with history of perforated diverticulitis status post sigmoid colectomy and diverting loop ileostomy 8 weeks ago presents for ileostomy reversal. He had an unremarkable barium enema preoperatively. Surgeon: Avi Diego Anesthesia Type: General Operative Notes Findings: Widely patent hemostatic side to side small-bowel anastomosis Specimen(s): other (Ileostomy) Estimated Blood Loss (mL): 30 Procedure in detail: Patient was brought to the operating room and placed supine on the table. Bilateral lower extremity compression devices were applied. He recieved 3.375 g of Zosyn prior to skin incision. General anesthesia was induced and he was intubated with an endotracheal tube. The ileostomy was closed using a [id number] suture. The abdomen was then prepped and draped in usual sterile fashion. Time-out was performed. A circumferential incision around the ileostomy was made. The subcutaneous tissues were divided with electrocautery and the adhesions between the ostomy the subcutaneous tissue and the fascia were sharply incisied The ileostomy was now mobile and entirely free from the fascia, it was now gently retracted out of the abdomen. I resected the ileostomy by creating a window in the mesentery and then dividing the the bowel proximal and distal to the ostomy using the CHERYL stapler with a a bowel load staple. The mesentery to the specimen was divided between clamps and silk suture. The specimen was passed off the field as ileostomy. I created a [id number]-pd-twly anastomosis by making a enterotomy on the antimesenteric border of both ends and then the stapler was used to create a common channel between the ends. The anastomosis was inspected and was widely patent and hemostatic. I closed the common channel using a running 3 0 PDS suture. The common channel was then imbricated with silk Lembert sutures. It was necessary to slightly extend the fascial incision in order to return the anastomosis to the abdomen. With this complete everything was thoroughly irrigated. The fascia was then closed using a running # 1 PDS suture. The subcutaneous tissue was reapproximated using Vicryl skin was closed with wilberto and a Dylon drain was placed within the wound. Patient tolerated procedure well he was extubated and transferred to the postoperative care unit in stable condition. Complications: none Post-operative Condition: stable Disposition: same day surgery
[2020-02-06] MEDS: ONDANSETRON 4 MG/2 ML INJ IV ×2 (09:15→11:13)
[2020-02-06] MEDS: fentaNYL 100 MCG/2 ML INJ IV ×2 (09:20→09:28)
[2020-02-06] MEDS: MORPHINE 10 MG/ML INJ IV ×2 (09:49→10:02)
--- NOTE | 2020-02-06 10:04 | SUR.PHASEI ---
Patient continues to c/o pain 02/11 after 100 fentanyl and 2 mg of morphine. Morphine 4 mg given as additional dose. Explained to patient that he would be transitioned from IV narcotics to PO narcotics and that complete relief of pain would be mostly unlikely today.
--- NOTE | 2020-02-06 11:02 | SUR.PHASEI ---
Late Entry: 1040: transferred patient to floor in stable condition. VSS. GCS 15.
[2020-02-06] MEDS: NICOTINE 21 MG PATCH TOP (11:13)
--- NOTE | 2020-02-06 11:57 | PC.NURSE ---
Addendum entered by Ashley López R.N. 02/06/20 14:11: Dr. Diego present on unit at 1355. Update given, aware of pt refusing SCD's. Dr to place order for PRN IV pain med. Pt may have regular diet, encouraged to go slow. Original Note: Day Shift- Report rec'd from Niecy RN in PACU at 1043. Pt arrived back to unit at 1050 via bed, pt re-oriented to call light, bed functions. Pt reports 7/10 aching, throbbing, and sharp intermittent pain to right and lower abd. Mild nausea, pt requested anti-emetic. Right lower quadrant abd dressing intact with 30% sang drainage shadowing to RLQ of dressing. Marked/outlined with pen by this RN. PRN Zofran IV given at 1112. Pt instructed on abd splinting with pillow, able to demonstrate. Pt refused Calf SCD's, aware or risk and benefits, able to voice to this RN, risks and benefits. Pt able to bend at knees, perform ankle pumps. Fax sent to Surgery at 1150 to clarify pt's current diet order and need for prn IV pain med.
[2020-02-06] MEDS: KETOROLAC 30 MG/ML VIAL IV ×2 (13:08→21:20)
--- NOTE | 2020-02-06 14:53 | CM.DANOTE ---
Discharge Planning/Care Management DCP: assessment: case received, EMR reviewed and discussed in Team Rounds. Rn coordinator explained that pt has been scheduled for an ileostomy takedown s/p initial surgery 8 weeks ago. He had difficulties with the bowel prep and ended up in the ER and then to room 221 at 0333 this morning. At time of this discussion pt had been cleared for surgery and had taken from this room to the surgical area. Surgeon: Dr. Diego Payer: Niles Vogel Admission status: INPT: confirmed by TYRONE RN. P: DCP team to follow up tomorrow to meet with pt and continue the assessment process. he has been moved now to room 222. CM Discharge Assessment Start: 02/06/20 14:52 Freq: Status: Active Protocol: Document 02/06/20 14:52 ITV (Rec: 02/06/20 14:53 ITV [id number]) Discharge Planning Assessment Advance Directives? No Advance Directives on File No History Provided By Medical Record Prior Living Arrangements House Household Members spouse,children Is patient alert and oriented? Yes Review Status In Process
[2020-02-06] MEDS: OXYCODONE IR 5 MG TABLET PO (15:45)
[2020-02-06] MEDS: ACETAMINOPHEN 325 MG TABLET 650 MG PO (18:13)
[2020-02-06] MEDS: SODIUM CHLORIDE 0.9% FLUSH 10 ML IV (21:20)
--- NOTE | 2020-02-07 00:23 | PC.NURSE ---
Pt A and O x4, VSS. Ambulating in hallway frequently. Pt ate 100% of scrambled eggs and toast and cheese and fruit plate with mild discomfort after. He is passing gas and has + BT in R and L upper quadrants. He is voiding qs clear yellow, S1, S2, LS clear but diminished L LL. Pt asked if he could wear a daniel shirt and shorts for comfort. Advised he needed to wear a gown over his clothes when walking in the hallway. He rates his pain 5/10.
[2020-02-07] MEDS: OXYCODONE IR 5 MG TABLET PO ×5 (04:51→21:14)
[2020-02-07 04:53] VITALS: BP 103/64; PULSE 62; RESP 18; TEMP 36.7; O2SAT 96
--- NOTE | 2020-02-07 04:57 | PC.NURSE ---
Addendum entered by Opal Cedillo R.N. 02/07/20 06:54: Spoke with MD, aware of increased WBC and prescribed Benadryl. Administered Dilaudid, patient reporting pain relief. Addendum entered by Opal Cedillo R.N. 02/07/20 06:40: Patient still in 8/10 pain, would like to administer Dilaudid but patient requests Benadryl prior due to past itching associated with Dilaudid administration. 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 Will continue to monitor. Addendum entered by Opal Cedillo R.N. 02/07/20 06:04: Patient reports 2 unmeasured voids and BM's this AM. Reminded patient to use urinal for measuring purposes. Patient reports he is tolerating pain post medication administration. Noted WBC count, patient is afebrile 97.8, BP 105/63, and 51bpm. Denies chills, n/v, only complaint at this time is intermittent pain. Will continue to monitor. Original Note: Patient c/o sharp pain 8/10, moaning, guarding abdomen, PRN and scheduled pain medication administered. Patient reminded to splint abdomen with coughing and moving. Patient up to void, +BM, +flatus.
[2020-02-07] MEDS: KETOROLAC 30 MG/ML VIAL IV ×3 (05:00→21:14)
[2020-02-07] MEDS: ACETAMINOPHEN 325 MG TABLET 650 MG PO ×3 (05:00→23:44)
[2020-02-07] MEDS: PANTOPRAZOLE 20 MG TABLET PO (05:00)
[2020-02-07] MEDS: LACTATED RINGERS 1,000 ML 150 ML IV (05:01)
[2020-02-07 05:07] LABS: Add Manual Diff / Slide Review NO; Basophils Absolute Auto 100 /uL (0-100); Basophils Percent Auto 0.2 % (0-2); Eosinophils Absolute Auto 0 /uL (0-450); Eosinophils Percent Auto 0.1 % (2-4); Hematocrit 41.8 % (41-53); Hemoglobin 13.9 g/dL (13.5-17.5); Lymphocytes Absolute Auto 1900 /uL (1100-4500); Lymphocytes Percent Auto 7.5 % (25-40); Mean Corpuscular HGB Conc 33.2 % (30-36); Mean Corpuscular Hemoglobin 33.5 PG (26-34); Mean Corpuscular Volume 100.9 fL (80-100); Monocytes Absolute Auto 1800 /uL (0-900); Monocytes Percent Auto 7.1 % (3-14); Neutrophils Absolute Auto 21200 /uL (1500-7000); Neutrophils Percent Auto 85.1 % (50-75); Platelet Count 256 X10^3/uL (150-400); Red Blood Cell Count 4.14 X10^6/uL (4.5-5.9); Red Cell Distribution Width 13.5 % (11.6-14.8)
[2020-02-07 05:17] LABS: Blood Urea Nitrogen 17 mg/dL (9-20); Calcium 8.6 mg/dL (8.4-10.2); Carbon Dioxide 24 mmol/L (22-32); Chloride 106 mmol/L (98-107); Estimated Glomerular Filt Rate > 60.0 mL/min (>60); Glucose 135 mg/dL (70-100); HEMOLYSIS < 15 (0-50); Potassium 3.8 mmol/L (3.4-5.1); Sodium 134 mmol/L (137-145)
[2020-02-07] MEDS: HYDROMORPHONE 0.5 MG INJ IV ×4 (06:49→23:45)
[2020-02-07] MEDS: diphenhydrAMINE 50 MG/ML VIAL 25 MG IV (07:36)
[2020-02-07 07:50] VITALS: BP 111/67; PULSE 65; RESP 16; TEMP 37.1; O2SAT 96
[2020-02-07] MEDS: NICOTINE 21 MG PATCH TOP (08:40)
--- NOTE | 2020-02-07 09:08 | PM.PNPO.1 ---
Subjective Subjective Date Patient Seen: 02/07/20 Time Patient Seen: 09:08 Interval history: No acute overnight events. Had flatus and passing some liquid stool per rectum. Tolerating a regular diet. No nausea vomiting. Has right sided abdominal pain especially at the incision. Exam Vital Signs (past 8 hours): - 02/07/20 04:53 02/07/20 07:50 Temperature 98.0 F 98.8 F Pulse Rate 62 65 Respiratory Rate 18 16 Blood Pressure 103/64 111/67 Pulse Oximetry 96 96 Oxygen Delivery Method Room Air Oxygen Flow Rate 0 Narrative Exam Narrative: General adult male alert oriented no acute distress Abdomen soft appropriately tender to palpation right lower quadrant ileostomy site with clean dry intact dressings will removed tomorrow. Objective Labs Result Diagrams: 02/07/20 04:36 02/07/20 04:36 Labs: Laboratory Results - last 24 hr 02/07/20 02/07/20 04:36 04:36 WBC 25.0 H D RBC 4.14 L Hgb 13.9 Hct 41.8 MCV 100.9 H MCH 33.5 MCHC 33.2 RDW 13.5 Plt Count 256 Neut % (Auto) 85.1 H D Lymph % (Auto) 7.5 L [place] % (Auto) 7.1 Eos % (Auto) 0.1 L Baso % (Auto) 0.2 Neut # (Auto) 35694 H Lymph # (Auto) 1900 [place] # (Auto) 1800 H Eos # (Auto) 0 Baso # (Auto) 100 Sodium 134 L Potassium 3.8 Chloride 106 Carbon Dioxide 24 BUN 17 Creatinine 0.63 L Estimated GFR > 60.0 BUN/Creatinine Ratio 27.0 H Glucose 135 H Calcium 8.6 Assessment & Plan Post-op Postoperative Procedures: Procedures Operation Date: 02/06/20 07:45 Actual Procedures Side Surgeon p Ileostomy Reversal Avi Diego MD Postoperative status narrative: 44-year-old man postoperative day 1 after a ileostomy reversal doing well. -regular diet -DC IV fluids -start MS Contin plus oxycodone 5 mg as needed for pain control. -SCDs and Lovenox for VT prophylaxis. -anticipate discharge home tomorrow 02/07
[2020-02-07] MEDS: SODIUM CHLORIDE 0.9% FLUSH 10 ML IV ×4 (09:31→23:45)
[2020-02-07] MEDS: MORPHINE ER 15 MG TABLET PO ×2 (09:33→20:24)
[2020-02-07 11:00] VITALS: BP 116/72; PULSE 66; RESP 16; TEMP 36.6; O2SAT 97
[2020-02-07] MEDS: ENOXAPARIN 40 MG/0.4 ML SYRINGE SUBCUT (13:26)
[2020-02-07 17:00] VITALS: BP 91/55; PULSE 77; RESP 20; TEMP 37.2; O2SAT 96
[2020-02-07 21:00] VITALS: BP 101/56; PULSE 49; RESP 18; TEMP 36.8
[2020-02-07 23:45] VITALS: BP 120/71; PULSE 63; RESP 18; TEMP 36.8; O2SAT 98
[2020-02-07] MEDS: diphenhydrAMINE 25 MG TABLET PO (23:49)
[2020-02-08] MEDS: OXYCODONE IR 5 MG TABLET PO ×3 (01:12→11:49)
--- NOTE | 2020-02-08 01:48 | PC.NURSE ---
Addendum entered by Leticia Wallace R.N. 02/08/20 05:08: health information tech reports patient refused blood draw and then slammed room door shut. Addendum entered by Leticia Wallace R.N. 02/08/20 04:14: FOOTWEAR STITCHER reports that patient requesting pain medication + Benadryl. Medicated with Dilaudid for 5/10 pain. Patient informed that Benadryl was ordered for q6h as needed and last had around 0000 so unable to give at this time. Patient became upset stating then it's not an as needed medication if he has to wait 6 hours between doses. Then asked what did you give me and when told he had received the Dilaudid again became upset stating he had asked for Benadryl and not the Dilaudid and now I am screwed because he would be itchy from the Dilaudid. Addendum entered by Leticia Wallace R.N. 02/08/20 02:06: States pain is continuing to be 6/10 so medicated with IV Dilaudid. Original Note: 0000 Patient seen and assessed. Having 8/10 lower abdominal pain with intermittent spikes of pain so was medicated with scheduled Tylenol + IV Dilaudid. Breath sounds CTA with RA sat of 98%. HRR. Denies nausea. BT present and abdomen is soft; reports some tenderness in RLQ distal to dressing. Dressing to right abdomen is intact with old drainage outlined. States he has been passing liquid stools. Denies any dysuria, frequency or urgency. Fall risk score is moderate; patient states he is steady on feet and knows to sit on edge of bed prior to getting up and if any dizziness, lightheadedness or weakness is present verbalizes he will call for assistance. Up ambulating in cruz independently. 0112 States pain has improved to 4/10 with spikes of pain at 6/10; medicated with Oxycodone.
[2020-02-08] MEDS: HYDROMORPHONE 0.5 MG INJ IV ×3 (02:02→09:29)
[2020-02-08] MEDS: SODIUM CHLORIDE 0.9% FLUSH 10 ML IV ×4 (02:03→09:22)
[2020-02-08 04:11] VITALS: BP 102/60; PULSE 48; RESP 18; TEMP 36.7; O2SAT 95
[2020-02-08] MEDS: ACETAMINOPHEN 325 MG TABLET 650 MG PO ×2 (05:40→13:01)
[2020-02-08] MEDS: diphenhydrAMINE 25 MG TABLET PO (05:40)
[2020-02-08] MEDS: KETOROLAC 30 MG/ML VIAL IV ×2 (05:51→13:02)
[2020-02-08] MEDS: PANTOPRAZOLE 20 MG TABLET PO (06:11)
[2020-02-08 09:00] VITALS: BP 114/70; PULSE 56; RESP 15; TEMP 36.6; O2SAT 100
[2020-02-08 09:08] LABS: Add Manual Diff / Slide Review NO; Basophils Absolute Auto 100 /uL (0-100); Basophils Percent Auto 0.8 % (0-2); Eosinophils Absolute Auto 100 /uL (0-450); Eosinophils Percent Auto 1.2 % (2-4); Hemoglobin 13.5 g/dL (13.5-17.5); Lymphocytes Absolute Auto 3200 /uL (1100-4500); Lymphocytes Percent Auto 25.7 % (25-40); Mean Corpuscular HGB Conc 32.8 % (30-36); Mean Corpuscular Hemoglobin 33.8 PG (26-34); Monocytes Absolute Auto 1000 /uL (0-900); Neutrophils Absolute Auto 7900 /uL (1500-7000); Neutrophils Percent Auto 64.3 % (50-75); Platelet Count 244 X10^3/uL (150-400); Red Blood Cell Count 3.99 X10^6/uL (4.5-5.9); Red Cell Distribution Width 13.8 % (11.6-14.8); White Blood Cell Count 12.3 X10^3/uL (4.5-11.0)
[2020-02-08 09:17] LABS: BUN Creatinine Ratio 23.8 (6-22); Blood Urea Nitrogen 15 mg/dL (9-20); Calcium 8.5 mg/dL (8.4-10.2); Carbon Dioxide 27 mmol/L (22-32); Chloride 106 mmol/L (98-107); Estimated Glomerular Filt Rate > 60.0 mL/min (>60); Glucose 116 mg/dL (70-100); HEMOLYSIS < 15 (0-50); Potassium 4.1 mmol/L (3.4-5.1); Sodium 138 mmol/L (137-145)
[2020-02-08] MEDS: ENOXAPARIN 40 MG/0.4 ML SYRINGE SUBCUT (09:22)
[2020-02-08] MEDS: NICOTINE 21 MG PATCH TOP (09:22)
[2020-02-08] MEDS: MORPHINE ER 15 MG TABLET PO (09:22)
--- NOTE | 2020-02-08 10:40 | PC.NURSE ---
Addendum entered by Eryn Stone R.N. 02/08/20 13:51: Patient given discharge instructions and packets, and educated about discharge. Patient verbalized understanding. Patient's medications were electronically sent to [facility] in [place] per patient request. Patient wheeled to private car, accompanied by mother for drive home. Original Note: Patient is still having pain 6/10 in incision area and groin. Patient is still asking for IV dialaudid Q2 PRN, along with 5mg Oxycodone PRN and scheduled Morphine ER. VSS, bowel tones positive and patient is passing liquid stool and gas. Patient is expressing anxiety about going home today. Dr. Diego notified of patient's feelings. Dr. Diego removed bandage and drain on abdomen today, and wound site and incision are intact w/wilberto and gauze w/ tape. No signs or symptoms of infection noted. Patient expressing need for shower today, HYDROELECT[employer]IC PLANT MAINTAINER will help him with this, this AM. Patient has been ambulating independently in room and in hallways.
[2020-02-08 12:39] VITALS: BP 170/68; PULSE 55; RESP 16; TEMP 36.6; O2SAT 100
[2020-02-08] MEDS: LORazepam 1 MG TABLET PO (13:13)
--- NOTE | 2020-02-08 15:18 | P.DS_ITS ---
History of Present Illness History of Present Illness Chief complaint: leg/arm cramping massive headache Narrative: 44-year-old man with a sigmoid colectomy 8 weeks ago with diverting ileostomy for perforated diverticulitis, here for ileostomy reversal. Preoperatively he became dehydrated he was admitted overnight received IV fluid hydration and is now ready for the operating room. Discharge Providers Provider Date of admission: 02/06/20 03:33 Discharge Date: 02/08/20 Consults: 02/06/20 03:50 Consult to Dietitian, Adult Routine Comment: Reason For Exam: weight loss Discharge provider: Avi Murphy MD Summary Hospital Course Discharge Diagnosis: Dehydration Enterostomy reversal Hospital Course: Patient underwent a ileostomy reversal 02/05. His postoperative course was unremarkable. He had return of bowel function his diet was advanced and his pain was controlled. On the day of discharge 02/07 he is tolerating a regular diet having flatus bowel movements pain is well controlled on oral medication. Exam Vital Signs (past 8 hours): - 02/08/20 09:00 02/08/20 12:39 Temperature 97.8 F 98 F Pulse Rate 56 L 55 L Respiratory Rate 15 16 Blood Pressure 114/70 170/68 H Pulse Oximetry 100 100 Oxygen Delivery Method Room Air Oxygen Flow Rate 0 Narrative Exam Narrative: General adult male alert oriented no acute distress Abdomen soft appropriately tender to palpation incision right lower quadrant clean dry intact with wilberto the Dylon drain is removed. Objective Labs Result Diagrams: 02/08/20 08:54 02/08/20 08:54 Labs: Laboratory Results - last 24 hr 02/08/20 02/08/20 08:54 08:54 WBC 12.3 H D RBC 3.99 L Hgb 13.5 Hct 41.0 MCV 103.0 H MCH 33.8 MCHC 32.8 RDW 13.8 Plt Count 244 Neut % (Auto) 64.3 D Lymph % (Auto) 25.7 [place] % (Auto) 8.0 Eos % (Auto) 1.2 L Baso % (Auto) 0.8 Neut # (Auto) 7900 H Lymph # (Auto) 3200 [place] # (Auto) 1000 H Eos # (Auto) 100 Baso # (Auto) 100 Sodium 138 Potassium 4.1 Chloride 106 Carbon Dioxide 27 BUN 15 Creatinine 0.63 L Estimated GFR > 60.0 BUN/Creatinine Ratio 23.8 H Glucose 116 H Calcium 8.5 Discharge Plan Discharge Plan Patient Disposition: Home Discharge orders & Medications Prescriptions: New oxycodone [OxyContin] 15 mg tablet,oral only,ext.rel.12 hr 15 mg PO BID Qty: 20 RF: 0 oxycodone 5 mg tablet 5 mg PO Q6H PRN (Reason: pain) Qty: 30 RF: 0 Continued ibuprofen 600 mg Tablet 800 mg PO BID Qty: 0 RF: 0 omeprazole 20 mg Capsule,Delayed Release(Dr/Ec) 20 mg PO DAILY RF: 0 Discontinued neomycin 500 mg tablet 1 gram PO TID 0 Days Qty: 6 RF: 0 erythromycin 500 mg tablet 1,000 mg PO TID Qty: 6 RF: 0 Follow up/Referrals: Avi Murphy MD [Physician] - (PLEASE CALL DR MURPHY'S OFFICE WHEN YOU GET HOME, TO SCHEDULE A FOLLOW UP APPOINTMENT.) Diet/Activity/Treatments Activity: No lifting >20 lbs for 4 weeks. Ok to shower. Skin/Wound/Dressing Care Report to your healthcare provider any signs of infection, such as:: chills, fever, increased pain and unusual redness Visit Report/Discharge Packet Instructions: DI for Prescription Opioid Use, DI for Colostomy or Ileostomy Reversal, [facility]: Wound Care Visit Report Forms: Patient Portal/API, Stroke Signs & Symptoms Discharges patient from system. Discharge Date/Time: 02/08/20 13:58
== END 2020-02-08 13:58 | disposition home or self-care (01) | DRG 331 ==
LOC: ED 03:19 → AC 03:34
PROVIDERS: Admitting Provider Surgery; Emergency Provider Emergency Medicine; Referring Provider Surgery; Visit Provider Surgery
PROC: 0DBB0ZZ Excision of Ileum, Open Approach (ICD-10-PCS; CPT 44620; principal; 2020-02-06 07:45)
DX: Z43.2 Encounter for attention to ileostomy (principal); E86.0 Dehydration; R51 Headache; F17.210 Nicotine dependence, cigarettes, uncomplicated; Z11.59 Encounter for screening for other viral diseases
CPT/HCPCS: 36415; 36592; 44620; 80048; 85025; 87635; 93005; 99284; J1100; J1170; J1200; J1650; J1885; J2250; J2270; J2405; J2543; J2704; J3010

== ENCOUNTER → 2022-01-11 12:46 | Outpatient (CLI) | payer OTHER, SELFPAY ==
[2020-02-28 09:18] VITALS: BMI 19.7
--- NOTE | 2022-01-11 12:47 | DI.RAD.S_ITS ---
PROCEDURE: XR CHEST 2V INDICATIONS: shortness of breath TECHNIQUE: 2 views of the chest were acquired. COMPARISON: None. FINDINGS: Surgical changes and devices: None. Lungs and pleura: Lungs are clear. No pleural effusions or pneumothorax. Mediastinum: Mediastinal contours are normal. Heart size is normal. Bones and chest wall: No suspicious bony abnormalities. Soft tissues appear unremarkable. IMPRESSION: No acute cardiopulmonary abnormality. Dictated by: Ever Duran M.D. on 01/11/2022 at 12:14 Approved by: Ever Duran M.D. on 01/11/2022 at 12:18
== END ==
PROVIDERS: Referring Provider Physician Assistant; Visit Provider Physician Assistant
DX: R06.02 Shortness of breath (principal)
CPT/HCPCS: 71046

== ENCOUNTER → 2022-04-12 11:41 | Outpatient (CLI) | payer OTHER, SELFPAY ==
[2020-02-28 09:18] VITALS: BMI 19.7
--- NOTE | 2022-04-12 11:43 | DI.RAD.S_ITS ---
PROCEDURE: XR FINGER RT MIN 2V INDICATIONS: Injury right 5th finger TECHNIQUE: AP hand, 2 views of the 5th finger(s) acquired. COMPARISON: None. FINDINGS: Bones: There is a comminuted, impacted fracture of the proximal aspect of the proximal phalanx of the 5th finger. On 1 image, there is potential minimal intra-articular involvement. No additional fractures are detected. Soft tissues: No suspicious soft tissue calcifications. IMPRESSION: 5th finger fracture. Dictated by: Clifford Moctezuma M.D. on 04/12/2022 at 11:53 Approved by: Clifford Moctezuma M.D. on 04/12/2022 at 11:54
== END ==
PROVIDERS: Referring Provider Nurse Practitioner Family; Visit Provider Nurse Practitioner Family
DX: S62.616A Displaced fracture of proximal phalanx of right little finger, initial encounter for closed fracture (principal); X58.XXXA Exposure to other specified factors, initial encounter
CPT/HCPCS: 73140

== ENCOUNTER 2022-05-08 09:49 | Emergency (ER) | payer OTHER, SELFPAY ==
[2020-02-28 09:18] VITALS: BMI 19.7
[2022-05-08] VITALS (51 sets, daily range): BP systolic 120–166; BP diastolic 81–97; PULSE 72–110; RESP 9–66; TEMP 36.7; O2SAT 92–100; BMI 20.3
--- NOTE | 2022-05-08 09:57 | DI.RAD.S_ITS ---
PROCEDURE: XR CHEST 1V INDICATIONS: Flu like symptoms TECHNIQUE: One view of the chest was acquired. COMPARISON: [facility], [facility], XR CHEST 2V, 01/11/2022, 12:35. [facility], SAMY, CHEST 2 VIEW, 06/21/2009, 12:50. FINDINGS: Surgical changes and devices: None. Lungs and pleura: Mild airspace disease is seen in the right lower lung. No pleural effusions or pneumothorax. Mediastinum: Mediastinal contours appear normal. Heart size is normal. Bones and chest wall: No suspicious bony lesions. Overlying soft tissues appear unremarkable. IMPRESSION: Mild airspace consolidation in the right lower lung. Consider future imaging surveillance to assess for resolution. Dictated by: Anshu Noyola M.D. on 05/08/2022 at 10:12 Approved by: Anshu Noyola M.D. on 05/08/2022 at 10:13
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
--- NOTE | 2022-05-08 10:31 | DI.CT.S_ITS ---
PROCEDURE: CT CHEST WO CON INDICATIONS: pain TECHNIQUE: Noncontrast 5 mm thick sections acquired from the pulmonary apices to the posterior costophrenic angles. 1 mm lung window, 5 mm thick coronal and sagittal and 7 mm axial MIP reformats were then acquired. For radiation dose reduction, the following was used: automated exposure control, adjustment of mA and/or kV according to patient size. COMPARISON: None. FINDINGS: Image quality: Excellent Lungs and pleura: Suspected basal scarring and atelectasis. No pneumothorax. No hemothorax. Pulmonary micronodules are best seen on maximum intensity images. Followup for these is optional for high-risk patients. Mediastinum, heart, and esophagus: No hiatal hernia. Heart size is at the upper limit of normal. No pathologic adenopathy or thoracic aortic aneurysm. Chest wall and thyroid: Thyroid is unremarkable. No significant extrapleural hematoma. Upper abdomen: Unremarkable on limited noncontrast exam. Bones: No suspicious osseous lesion. Nondisplaced right 5th rib fracture. Probably a nondisplaced right 6th rib fracture. Age-indeterminate height loss of some vertebral bodies possibly degenerative, for example T11, T12, and L1. A deformity is seen in the upper sternum and lower sternum, age indeterminate. IMPRESSION: Right nondisplaced 5th and 6th rib fractures as above. Additional sternal and vertebral body deformities may not be acute, correlate for point tenderness. No pneumothorax identified. Additional findings above. Dictated by: Anshu Noyola M.D. on 05/08/2022 at 11:34 Approved by: Anshu Noyola M.D. on 05/08/2022 at 11:39
[2022-05-08 10:40] LABS: Add Manual Diff / Slide Review NO; Basophils Absolute Auto 100 /uL (0-100); Basophils Percent Auto 0.8 % (0-2); Eosinophils Absolute Auto 100 /uL (0-450); Eosinophils Percent Auto 0.8 % (2-4); Hematocrit 46.8 % (41-53); Hemoglobin 16.1 g/dL (13.5-17.5); Lymphocytes Absolute Auto 1700 /uL (1100-4500); Lymphocytes Percent Auto 13.5 % (25-40); Mean Corpuscular HGB Conc 34.3 % (30-36); Mean Corpuscular Hemoglobin 35.4 PG (26-34); Mean Corpuscular Volume 103.4 fL (80-100); Monocytes Absolute Auto 1700 /uL (0-900); Monocytes Percent Auto 14.2 % (3-14); Neutrophils Absolute Auto 8700 /uL (1500-7000); Neutrophils Percent Auto 70.7 % (50-75); Platelet Count 275 X10^3/uL (150-400); Red Blood Cell Count 4.53 X10^6/uL (4.5-5.9); Red Cell Distribution Width 13.1 % (11.6-14.8); White Blood Cell Count 12.3 X10^3/uL (4.5-11.0)
[2022-05-08] MEDS: KETOROLAC 30 MG/ML VIAL 15 MG IV (10:42)
[2022-05-08] MEDS: MORPHINE 4 MG/ML INJ IV ×2 (10:43→12:33)
[2022-05-08 10:50] LABS: Alanine Aminotransferase 26 IU/L (<50); Albumin 4.4 g/dL (3.5-5.0); Albumin Globulin Ratio 1.3 (1.0-2.8); Alkaline Phosphatase 81 U/L (38-126); Aspartate Aminotransferase 32 IU/L (17-59); Blood Urea Nitrogen 8 mg/dL (9-20); Calcium 8.5 mg/dL (8.4-10.2); Carbon Dioxide 21 mmol/L (22-32); Chloride 105 mmol/L (98-107); Estimated Glomerular Filt Rate > 60 mL/min (>60); Ethanol (ETOH) 16 mg/dL; Globulin 3.3 g/dL (1.7-4.1); Glucose 105 mg/dL (70-100); HEMOLYSIS < 15 (0-50); Potassium 3.9 mmol/L (3.4-5.1); Sodium 138 mmol/L (137-145); Total Protein 7.7 g/dL (6.3-8.2)
--- NOTE | 2022-05-08 12:16 | DI.ECHO.S_ITS ---
[place] [facility]---------+ [facility] +---------+ : : [address] : [address] : : : : [id number] : : : : Phone: [phone]---------+ Echocardiogram Report + + :Name: BEBETO HARRIS Study Date: 05/08/2022 Height: 72 in : :[facility] ReadingLocation: Weight: 150 lb : : Gender: Male BSA: 1.9 m2 : :: 1975 Age: 46 yrs BP: 140/97 mmHg: :Reason For Study: STERNAL FRACTURE, R/O PERICARDIAL EFFUSION : :Ordering Physician: BEST, : :MARK Performed By: Karyn Snyder : :Referring: MARK JEWELL : + + Interpretation Summary The left ventricle is normal in size and wall thickness. The ejection fraction is estimated to be 60-65%. There is no pericardial effusion. Procedure: A two-dimensional transthoracic echocardiogram with color flow and Doppler was performed in limited views only to assess Pericardial effusion.. The study quality was technically adequate. There is no prior echocardiogram noted for this patient. The patient was in sinus rhythm with heart rates between 70-77 bpm during the exam. Left Ventricle: The left ventricle is normal in size and wall thickness. The ejection fraction is estimated to be 60-65%. Right Ventricle: The right ventricle grossly appears normal in size with probable normal systolic function. Atria: The left atrial size is normal. Right atrial size is normal. Mitral Valve: The mitral valve is grossly normal. Aortic Valve: The aortic valve is grossly normal. Tricuspid Valve: The tricuspid valve is not well visualized, but is grossly normal. Great Vessels: The IVC is of normal diameter and collapses greater than 50% with a sniff. This suggests a low right atrial pressure of 3 mm Hg. Pericardium/ Pleura There is no pericardial effusion. There is no pleural effusion. MMode/2D Measurements & Calculations LVIDd: 5.0 cm LA A2 area: 17.3 cm2 LVIDs: 3.3 cm LA A4 area: 16.0 cm2 FS: 34.1 % LA length (vol): 5.1 cm IVSd: 0.74 cm LA vol: 45.7 ml LVPWd: 0.83 cm LA vol index: 24.3 ml/m2 LV novoa. diameter/BSA (cm/m^2): 2.6 LV sys. diameter/BSA (cm/m^2): 1.7 RA long axis: 5.2 cm RVD1 (basal): 4.0 cm RA area: 18.2 cm2 RVD2 (mid): 3.2 cm RA vol: 54.0 ml RA : 28.6 ml/m2 IVC diam: 1.7 cm Reading Physician:03:49 PM
[2022-05-08 12:31] LABS: Creatine Kinase 448 U/L (55-170)
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
[2022-05-08 12:44] LABS: Troponin I < 0.012 ng/mL (0.01-0.034)
[2022-05-08 12:47] LABS: CKMB % Relative Index 0.7 % (1.5-5.0); Creatine Kinase MB 3.13 ng/mL (<2.37)
== END 2022-05-08 15:48 | disposition home or self-care (01) ==
PROVIDERS: Emergency Provider Emergency Medicine
DX: S22.41XA Multiple fractures of ribs, right side, initial encounter for closed fracture (principal); S22.20XA Unspecified fracture of sternum, initial encounter for closed fracture; S01.112A Laceration without foreign body of left eyelid and periocular area, initial encounter; Y04.2XXA Assault by strike against or bumped into by another person, initial encounter
CPT/HCPCS: 36415; 70450; 70486; 71045; 71250; 80053; 80320; 82550; 82553; 84484; 85025; 93005; 93307; 96374; 96375; 96376; 99284; J1885; J2270

== ENCOUNTER → 2022-10-16 12:07 | Outpatient (CLI) | payer OTHER, SELFPAY ==
[2020-02-28 09:18] VITALS: BMI 19.7
--- NOTE | 2022-10-16 12:11 | DI.RAD.S_ITS ---
PROCEDURE: XR KNEE RT 3V INDICATIONS: Knee pain TECHNIQUE: 3 views of the knee were acquired. COMPARISON: None. FINDINGS: Bones: No fractures or dislocations. No patellar subluxation. Joint spaces are well preserved. No suspicious bony lesions. Soft tissues: No joint effusion. No suspicious soft tissue calcifications. IMPRESSION: Unremarkable radiographic examination of right knee. Dictated by: Mustapha Oneal M.D. on 10/16/2022 at 13:22 Approved by: Mustapha Oneal M.D. on 10/16/2022 at 13:24
--- NOTE | 2022-10-16 12:11 | DI.RAD.S_ITS ---
PROCEDURE: XR LUMBAR SPINE 2-3V INDICATIONS: Back pain TECHNIQUE: 3 views of the lumbar spine were acquired. COMPARISON: None. FINDINGS: Bones: 5 xlp-[id number]-vledide vertebrae are present. There is mild rightward curvature of thoracolumbar spine with apex at L2 level. No vertebral body compression fractures. Very mild degenerative endplate changes are noted at L3-4 through L5-S1 levels. No suspicious bony lesions. Soft tissues: Overlying bowel gas pattern is normal. No suspicious soft tissue calcifications. IMPRESSION: Mild scoliosis. No compression fracture or spondylolisthesis. Very mild degenerative disc disease in mid to lower lumbar spine. Dictated by: Mustapha Oneal M.D. on 10/16/2022 at 13:24 Approved by: Mustapha Oneal M.D. on 10/16/2022 at 13:24
[2022-10-16 14:11] LABS: Add Manual Diff / Slide Review NO; Basophils Absolute Auto 100 /uL (0-100); Eosinophils Absolute Auto 200 /uL (0-450); Eosinophils Percent Auto 1.9 % (2-4); Hematocrit 43.5 % (41-53); Hemoglobin 15.2 g/dL (13.5-17.5); Lymphocytes Absolute Auto 2500 /uL (1100-4500); Lymphocytes Percent Auto 30.3 % (25-40); Mean Corpuscular HGB Conc 34.9 % (30-36); Mean Corpuscular Hemoglobin 35.6 PG (26-34); Mean Corpuscular Volume 101.8 fL (80-100); Monocytes Absolute Auto 1200 /uL (0-900); Monocytes Percent Auto 14.3 % (3-14); Neutrophils Absolute Auto 4400 /uL (1500-7000); Neutrophils Percent Auto 52.5 % (50-75); Platelet Count 391 X10^3/uL (150-400); Red Blood Cell Count 4.28 X10^6/uL (4.5-5.9); Red Cell Distribution Width 13.7 % (11.6-14.8); White Blood Cell Count 8.4 X10^3/uL (4.5-11.0)
[2022-10-16 14:20] LABS: HEMOLYSIS < 15 (0-50); Iron 92 ug/dL (49-181)
[2022-10-16 14:24] LABS: Alanine Aminotransferase 25 IU/L (<50); Albumin 4.2 g/dL (3.5-5.0); Albumin Globulin Ratio 1.4 (1.0-2.8); Alkaline Phosphatase 65 U/L (38-126); Aspartate Aminotransferase 23 IU/L (17-59); BUN Creatinine Ratio 20.9 (6-22); Bilirubin Total 0.8 mg/dL (0.2-1.3); Blood Urea Nitrogen 14 mg/dL (9-20); Calcium 9.3 mg/dL (8.4-10.2); Carbon Dioxide 24 mmol/L (22-32); Chloride 106 mmol/L (98-107); Cholesterol 201 mg/dL (140-199); Estimated Glomerular Filt Rate > 60 mL/min (>60); Glucose 94 mg/dL (70-100); HDL Cholesterol 46 mg/dL (40-60); HEMOLYSIS < 15 (0-50); LDL Cholesterol Calculated 130 mg/dL (<100); Potassium 4.7 mmol/L (3.4-5.1); Sodium 138 mmol/L (137-145); Total Protein 7.2 g/dL (6.3-8.2); Triglycerides 127 mg/dL (35-150)
[2022-10-16 14:33] LABS: Percent Iron Saturation 26 % (20-50); Total Iron Binding Capacity 357 ug/dL (261-462)
[2022-10-16 14:34] LABS: Transferrin 258 mg/dL (206-381)
[2022-10-16 14:52] LABS: Prostate Specific Antigen 1.05 ng/mL (0.10-4.00)
[2022-10-16 15:11] LABS: Vitamin B12 357 pg/mL (239-931)
== END ==
PROVIDERS: PCP Family Medicine; Referring Provider Family Medicine; Visit Provider Family Medicine
DX: M25.561 Pain in right knee (principal); E78.5 Hyperlipidemia, unspecified; E86.0 Dehydration; Z00.00 Encounter for general adult medical examination without abnormal findings; M41.9 Scoliosis, unspecified; M51.36 Other intervertebral disc degeneration, lumbar region
CPT/HCPCS: 36415; 72100; 73562; 80053; 80061; 82607; 83540; 83550; 84153; 85025

== ENCOUNTER → 2022-11-19 11:11 | Outpatient (CLI) | payer OTHER, SELFPAY ==
[2020-02-28 09:18] VITALS: BMI 19.7
[2022-11-19 13:01] LABS: Rheumatoid Factor < 8.6 IU/mL (<12.0)
[2022-11-19 13:06] LABS: Add Manual Diff / Slide Review NO; Basophils Absolute Auto 100 /uL (0-100); Basophils Percent Auto 0.7 % (0-2); Eosinophils Absolute Auto 200 /uL (0-450); Eosinophils Percent Auto 1.9 % (2-4); Hematocrit 42.9 % (41-53); Hemoglobin 14.8 g/dL (13.5-17.5); Lymphocytes Absolute Auto 2500 /uL (1100-4500); Lymphocytes Percent Auto 22.4 % (25-40); Mean Corpuscular HGB Conc 34.6 % (30-36); Mean Corpuscular Hemoglobin 34.8 PG (26-34); Mean Corpuscular Volume 100.6 fL (80-100); Monocytes Absolute Auto 1000 /uL (0-900); Monocytes Percent Auto 9.1 % (3-14); Neutrophils Absolute Auto 7400 /uL (1500-7000); Neutrophils Percent Auto 65.9 % (50-75); Platelet Count 381 X10^3/uL (150-400); Red Blood Cell Count 4.27 X10^6/uL (4.5-5.9); Red Cell Distribution Width 13.3 % (11.6-14.8); White Blood Cell Count 11.3 X10^3/uL (4.5-11.0)
[2022-11-19 13:37] LABS: Erythrocyte Sedimentation Rate 1 MM/HR (0-15)
[2022-11-19 14:22] LABS: Vitamin B12 281 pg/mL (239-931)
[2022-11-24 22:22] LABS: ANA Screen, IFA Negative (.)
== END ==
PROVIDERS: PCP Family Medicine; Referring Provider Family Medicine; Visit Provider Family Medicine
DX: M25.50 Pain in unspecified joint (principal); M54.50 Low back pain, unspecified
CPT/HCPCS: 36415; 82607; 85025; 85651; 86038; 86430